=== PATIENT | female | born 1955 | race Caucasian/White ===

== ENCOUNTER 2016-08-28 13:37 | Inpatient (IN) ==
--- NOTE | 2016-08-28 13:52 | Anesthesia Evaluation PreOp ---
Date of Encounter: 08/28/16 Time of Encounter: 13:50 - Past History Planned Operation: Right Total Shoulder Cardiac History: HTN, Arrhythmia (Afib) Pulmonary History: Denies Any Significant HX PATIENT INTAKE COORDINATOR History: Denies Any Significant HX Other Medical History: Thyroid (Hypothyroid), GERD (PUD) Anesthesia History: No Prior Anesthetic Complications, Past Anesthesia (c/s, GB , Gastric Bypass) : No Alcohol Use: none Drug use: none Medications and Allergies Cyclobenzaprine [Flexeril] 10 mg PO BID 08/28/16 [History] Ibuprofen [Ibuprofen] 800 mg PO TID PRN 08/28/16 [History] LORazepam [Ativan] 1 mg PO HS PRN 08/28/16 [History] Levothyroxine [Synthroid] 100 mcg PO 0630 08/28/16 [History] Omeprazole [PriLOSEC] 20 mg PO DAILY 08/28/16 [History] Oxycodone HCl/Acetaminophen [Percocet 7.5-325 mg Tablet] 1 each PO Q6H PRN 08/28 [History] Sotalol [Betapace] 80 mg PO Q12H 08/28/16 [History] Zolpidem [Ambien] 10 mg PO HS 08/28/16 [History] Allergies latex Allergy (Verified 08/28/16 14:01) Itching testing drawn on 08/26/16 RESULTS PENDING 08/28/16 Penicillins Adverse Reaction (Verified 08/28/16 14:01) Redness of Skin - Meds/Allergy Pre-op Review Medications Reviewed: Yes Allergies Reviewed: Yes Beta Blockers on Current Med List: Yes ( ) If Beta Blockers taken, Date/Time (Last Dose taken): 08/28/2016 10:00 Anesthesia Results - Labs Laboratory Tests 08/26/16 08/26/16 08/26/16 14:45 14:45 14:45 WBC 10.7 Hgb 13.1 Hct 39.9 Plt Count 460 H INR 1.1 Sodium 137 Potassium 4.5 Chloride 104 Carbon Dioxide 25 BUN 24 H Creatinine 0.83 - Imaging EKG: image reviewed (Poss. Rabia SHARP Ant. [place]) Anesthesia Exam Height: 5'7'' Weight: 191# NPO (# of Hours): > 8 hrs Pain Scale: 0 Pain Scale Used: Numeric (1 - 10) - HEENT Pupil (Motor): Pupils equal, EOMI Mallampati: II Teeth: Edentulous Denture Type: Upper: Complete, Lower: Complete Oral Opening: Greater than 3 - PATIENT INTAKE COORDINATOR LOC: Oriented PATIENT INTAKE COORDINATOR Motor: Normal RUE, Normal LUE, Normal RLE, Normal LLE, Normal Face PATIENT INTAKE COORDINATOR Sensory: Normal: RUE, LUE, RLE, LLE, Face - Cardiac Rhythm: Regular Murmur: None JVD: No Carotid Bruit: No - Pulmonary Breath Sounds: bilateral Clear Respiratory Effort: Symmetrical Anesthesia Assess/Plan ASA Score: 3 Modified Edi Scale for Level of Consciousness: Cooperative, oriented, and tranquil Anesthetic Plan: General, Regional (Right Brachial Plexus Block) Autologous Blood: Yes Monitoring Plan: Standard Monitors Recovery Plan: PACU
[2016-08-28] MEDS ORDERED: Clindamycin 900 MG/50 ML 900 MG/50 ML IV.SOLN IVPB ONE (14:18)
--- NOTE | 2016-08-28 14:22 | History & Physical Report ---
Date of Encounter: 08/28/16 Time of Encounter: 14:22 24 Hour HP Update - Instructions Instructions: If the History and Physical is less than 30 days old and was completed prior to A.M. admission and or procedure and has NOT been updated on calendar day of procedure please complete this update prior to performing procedure. - Update Patient reports changes in Medical Condition: No Changes in examination, assessment, or condition: No Changes in Medication: No Preop tests/diagnostics Reviewed: Yes Surgery Remains Indicated: Yes Consent for Planned Operative Procedure(s) Verified: Yes - Pre-Operative Checklist Preoperative Checklist Indicated: No Prophylactic Antibiotic Ordered: Yes Is VTE Prophylaxis Indicated?: Yes
--- NOTE | 2016-08-28 14:24 | Discharge Summary ---
Date of Encounter: 08/29/16 Time of Encounter: 06:41 - Discharge Diagnosis (1) Hypertension Priority: Secondary Status: Chronic Qualifiers: Hypertension type: unspecified Qualified Code(s): I10 - Essential (primary ) hypertension (2) Atrial fibrillation Priority: Secondary Status: Chronic Qualifiers: Atrial fibrillation type: unspecified Qualified Code(s): I48.91 - Unspecified atrial fibrillation (3) Hypothyroidism Priority: Secondary Status: Chronic Qualifiers: Hypothyroidism type: unspecified Qualified Code(s): E03.9 - Hypothyroidism , unspecified (4) Fracture of right shoulder Priority: Primary Status: Acute Qualifiers: Encounter type: initial encounter Fracture type: closed Qualified Code(s) : S42.91XA - Fracture of right shoulder girdle, part unspecified, initial encounter for closed fracture - Discharge Medications Home Medications: Cyclobenzaprine [Flexeril] 10 mg PO BID 08/28/16 [History] Ibuprofen 800 mg PO TID PRN 08/28/16 [History] LORazepam [Ativan] 1 mg PO HS PRN 08/28/16 [History] Levothyroxine [Synthroid] 100 mcg PO 0630 08/28/16 [History] Omeprazole [PriLOSEC] 20 mg PO DAILY 08/28/16 [History] Oxycodone HCl/Acetaminophen [Percocet 7.5-325 mg Tablet] 1 each PO Q6H PRN 08/28 [History] Sotalol [Betapace] 80 mg PO Q12H 08/28/16 [History] Zolpidem [Ambien] 10 mg PO HS 08/28/16 [History] Allergies/Adverse Reactions: Allergies latex Allergy (Verified 08/28/16 14:01) Itching testing drawn on 08/26/16 RESULTS PENDING 08/28/16 Penicillins Adverse Reaction (Verified 08/28/16 14:01) Redness of Skin Primary care physician: Ashwini Lobato - Patient Status Disposition: Home, Self-Care Condition: Good Functional capacity at discharge: uses cane/walker Overall status at discharge: patient is progressing back to baseline - Discharge Instructions Follow Up With: Ashwini Kumar MD [Primary Care Provider] - - Hospital Course Hospital course: Ms. Pressley is a 60 year old female Status post right total shoulder replacement for fracture. The patient had an uneventful postoperative course. They received antibiotics and physical therapy and were discharged in stable condition. There will follow -up in the office in 2 weeks. - Time Spent with Patient Total time spent providing and/or coordinating discharge services:
[2016-08-28] MEDS ORDERED: Ringers Solution, Lactated 1,000 ML IVC SCH ×3 (14:30→17:55)
[2016-08-28] MEDS ORDERED: *HR* Succinylcholine 200 MG/10 ML VIAL IVP ONE (14:47)
[2016-08-28] MEDS ORDERED: Dexamethasone 4 MG/ML VIAL ONE (14:47)
[2016-08-28] MEDS ORDERED: *HR* FentaNYL (PF) 100 MCG/2 ML VIAL ONE (14:47)
[2016-08-28] MEDS ORDERED: Ondansetron 4 MG/2 ML VIAL ONE (14:47)
[2016-08-28] MEDS ORDERED: Lidocaine -MPF 2% 2 ML VIAL ONE (14:47)
[2016-08-28] MEDS ORDERED: *HR* Midazolam HCl 2 MG/2 ML VIAL ONE (14:48)
[2016-08-28] MEDS ORDERED: *HR* Propofol 200 MG/20 ML VIAL IVP ONE (14:48)
[2016-08-28] MEDS ORDERED: Lidocaine -MPF 4% 5 ML AMPUL ONE (14:58)
[2016-08-28] MEDS ORDERED: Bupivacaine/Clonidine Syringe 1 EACH SYRINGE ONE (15:05)
[2016-08-28] MEDS ORDERED: ROPIVACAINE HCL/PF 0.5% 30 ML VIAL ONE (15:05)
--- NOTE | 2016-08-28 15:26 | Anesthesia Procedures ---
Date of Encounter: 08/28/16 Time of Encounter: 15:15 Procedures: Anesthesia - Nerve Block Procedure Date: 08/28/16 Time: 15:15 Allergies/Adv Reactions: Latex, PCN Pre-op Diagnosis: Right shoulder rotator cuff arthropathy Surgical Procedure: Right total shoulder replacement Checklist: Correct Patient Identifier, Correct procedure, History checked Correct side: Right Blood Thinner: No Monitor Applied: EKG, BP, Pulse Oximetry Supplemental Oxygen via Nasal Cannula (L/min): 2 Sedation: Versed (mg): 2 Sedation: Fentanyl (mcg): 100 Indication: Post Op Analgesia Pre-op Neuro Deficits: Yes Block Type: Supraclavicular Catheter placed: No Sterile Technique: Yes Ultrasound used: Yes Anatomy identified: Yes Visual spread of Local: Yes Neuro Stimulation: No Blood on Needle Aspiration: No Smooth Injection of Local: Yes Pain with Injection of Local: No Prep: Chlorhexadine Needle: 22 x 50 mm Stimuplex Local: 0.25% Bupivicaine w/Clonidine 20 mcg/cc, Ropivacaine Volume (cc): Ropivicaine 30ml, [id number] Number of Attempts: 1 Complications: None/effective block Vitals: Vital Signs Temperature 97.8 F 08/28/16 14:07 Pulse Rate 69 08/28/16 14:07 Respiratory Rate 18 08/28/16 14:07 Blood Pressure 116/66 08/28/16 14:07 O2 Sat by Pulse Oximetry 98 08/28/16 14:07 Temperature 97.8 F 08/28/16 14:07 Pulse Rate 56 08/28/16 15:03 Respiratory Rate 16 08/28/16 15:03 Blood Pressure 121/109 08/28/16 15:03 O2 Sat by Pulse Oximetry 99 08/28/16 15:03
[2016-08-28] MEDS ORDERED: *HR* HYDROmorphone (PF) 1 MG/ML SYRINGE IVP PRN ×2 (15:27→17:55)
[2016-08-28] MEDS ORDERED: Ondansetron 4 MG/2 ML VIAL IVP ONE (15:27)
[2016-08-28] MEDS ORDERED: *HR* Labetalol 20 MG/4 ML SYRINGE IVP PRN (15:27)
[2016-08-28] MEDS ORDERED: *HR* Promethazine 25 MG/ML VIAL IVP PRN (15:27)
[2016-08-28] MEDS ORDERED: EPHEDrine 50 MG/ML VIAL ONE (15:58)
[2016-08-28] MEDS ORDERED: *HR* Phenylephrine 10 MG/ML VIAL ONE (16:02)
--- NOTE | 2016-08-28 16:50 | Orthopedic Operative Note ---
Date of procedure: 08/28/16 Pre-op diagnosis: disPlaced right proximal humerus fracture Post-op diagnosis: same Procedure: Procedure: Right Reverse total shoulder replacment Estimated blood loss: 100 cc Hardware: Metal and polyethylene replacement Arthrex glenoid baseplate: Medium , 2 4.5 screws. 1 6.5 screw, glenosphere: 42+4 , humeral stem: 9 , poly insert: 6 constrained Procedural Notes: Displaced proximal humerus fracture with comminution Operative procedure: The patient was brought to the operating room and placed on the operating room table. After general anesthesia was administered the operative shoulder was examined. Findings were noted. The patient was placed in the modified beachchair position. All pressure points were padded appropriately. And the head was stabilized in the neutral position. The operative extremity was prepped and draped in the sterile surgical fashion. The patient received IV antibiotics prior to skin incision. A standard deltopectoral approach was made to the operative shoulder. Incision was made to the skin and subcutaneous tissue,hemo stasis was obtained with Bovie cautery. Using careful blunt dissection the cephalic vein was identified and mobilized medially. The deltopectoral interval was developed and the clavipectoral fascia was incised. The lesser tuberosity was identified and tagged with 2 #2 fiber loops and 2 #2 FiberWire suture. The greater tuberosity was identified and tagged with 6 #5 FiberWire suture. The humeral head was removed. Anterior and posterior Bankart retractors were placed to expose the glenoid. The glenoid guide was seated and the centering hole was made. It was reamed with the appropriate reamer. The medium baseplate was seated and secured with ( 2) 4.5 screws and one 6.5 screw. The baseplate was irrigated and dried and the 42+4 was seated and secured with the Hutchinson taper. The Hutchinson taper was tested and found to be secure the humerus was redislocated and prepared with the diaphyseal reamers, followed by a broaching process up to the appropriate size 9 in 20 degrees of retro-version. Trial reduction found the shoulder to be relocatable. Trial components were removed and [address] on either side of the bicpital groove and filled with #5 fiberwire incorporating the biceps, for a later biceps tenodesis and vertical fixation of the tuberosities. The 9 real humeral component was impaced in place in 20 degrees of retroversion. Trial reduction found the shoulder to be relocatable and stable with the appropriate 6 constrained. Trial component was removed and the real implant was seated and secured the shoulder was reduced. The shoulder had excellent motion and excellent stability and no evidence of dislocation. The greater tuberosity was reduced and repaired to the implant with 2 # 5 fiberwire sutures. the lesser tuberosity was reduced and repaired to this construct with 2 #5 fiberwire sutures. Vertical fixation of the tuberosities was accomplished with the #5 fiberwire sutures in the humeral shaft, incoporating the bices in a box stitch type repair. The deep tissue was irrigated with pulse irrigation. The deltopectoral interval was closed with a running #1 PDS suture, subcutaneous tissue was irrigated and closed with 0 PDS suture, the skin was closed with skin viktoriya The patient was placed in a sterile dressing, abduction brace and extubated. The patient was then transferred to the recovery room in stable condition. Anesthesia: LUL Surgeon: Nadeem Gu Condition: stable Disposition: PACU
--- NOTE | 2016-08-28 17:31 | Anesthesia Evaluation Post Op ---
Date of Encounter: 08/28/16 Time of Encounter: 17:30 - Vital Signs Vital Signs: vss - Lungs Lungs: Clear Ascult./Percussion - Airway Airway: Non-obstructed - Cardiovascular Baseline Rhythm - Mental Status Mental Status: Alert & Oriented, Answers Appropriately - Pain Pain Scale: 0 Pain Scale used: Hollie (Faces) - Nausea Vomiting Nausea Vomiting: Not Present - Hydration Hydration: Ice chips - Discharge PostOp Status: Transfer Patient to floor
[2016-08-28 17:37] LABS: Hematocrit 35.5 % (35.3-44.9); Hemoglobin 11.7 g/dL (11.5-15.4)
[2016-08-28] MEDS ORDERED: Naloxone 0.4 MG/ML INJ IVP PRN (17:55)
[2016-08-28] MEDS ORDERED: Ibuprofen 800 MG TABLET PO PRN (17:55)
[2016-08-28] MEDS ORDERED: MOM Conc 10 ML UD.LIQ PO PRN (17:55)
[2016-08-28] MEDS ORDERED: *HR* LORazepam 1 MG TABLET PO PRN (17:55)
[2016-08-28] MEDS ORDERED: Sennosides 8.6 MG TABLET PO PRN (17:55)
[2016-08-28] MEDS ORDERED: *HR* OxyCODONE Immed Rel 5 MG TABLET PO PRN ×2 (17:55)
[2016-08-28] MEDS ORDERED: Ondansetron 4 MG/2 ML VIAL IVP PRN (17:55)
[2016-08-28] MEDS ORDERED: Temazepam 15 MG CAPSULE PO PRN (17:55)
[2016-08-28] MEDS ORDERED: *HR* Enoxaparin 30 MG/0.3 ML SYRINGE SQ SCH (18:00)
[2016-08-28] MEDS: *HR* Enoxaparin 30 MG/0.3 ML SYRINGE SQ SCH (18:39)
[2016-08-28] MEDS: Clindamycin 900 MG/50 ML 900 MG/50 ML IV.SOLN IVPB SCH (18:39)
[2016-08-29] MEDS: Clindamycin 900 MG/50 ML 900 MG/50 ML IV.SOLN IVPB SCH (01:02)
[2016-08-29 01:15] LABS: Hemoglobin 13.1 g/dL (11.5-15.4)
[2016-08-29] MEDS: *HR* Enoxaparin 30 MG/0.3 ML SYRINGE SQ SCH (06:37)
--- NOTE | 2016-08-29 06:42 | Orthopedics Progress Note ---
Date of Encounter: 08/29/16 Time of Encounter: 06:42 - Assessment and Plan (1) Hypertension Current Visit: Yes Status: Chronic Qualifiers: Hypertension type: unspecified Qualified Code(s): I10 - Essential (primary ) hypertension (2) Atrial fibrillation Current Visit: Yes Status: Chronic Qualifiers: Atrial fibrillation type: unspecified Qualified Code(s): I48.91 - Unspecified atrial fibrillation (3) Hypothyroidism Current Visit: Yes Status: Chronic Qualifiers: Hypothyroidism type: unspecified Qualified Code(s): E03.9 - Hypothyroidism , unspecified (4) Fracture of right shoulder Current Visit: No Status: Acute Qualifiers: Encounter type: initial encounter Fracture type: closed Qualified Code(s) : S42.91XA - Fracture of right shoulder girdle, part unspecified, initial encounter for closed fracture Subjective Interval history: Patient was seen this morning doing well without complaints. Afebrile vital signs stable. Operative extremity: Neurovascularly intact Dressing clean dry and intact Calves nontender Assessment and plan: Continue with postoperative care Hematocrit 42 discharged today Objective Vital signs: Vital Signs Temp Pulse Resp BP Pulse Ox 08/28/16 21:00 94.6 F L 56 16 123/64 95 08/28/16 20:28 95 08/28/16 20:00 97.6 F 56 16 120/77 94 08/28/16 18:44 98.0 F 53 18 104/66 96 08/28/16 18:32 97.4 F L 55 16 118/53 97 08/28/16 17:56 97.5 F L 53 18 118/75 100 08/28/16 17:35 97.4 F L 52 12 113/63 100 08/28/16 17:25 97.4 F L 56 12 123/71 100 08/28/16 17:15 54 12 104/63 100 08/28/16 17:05 58 12 100/66 100 08/28/16 16:55 97.5 F L 60 12 100/65 100 08/28/16 15:03 56 16 121/109 99 08/28/16 14:07 97.8 F 69 18 116/66 98 Intake and Output 08/28/16 08/28/16 08/29/16 15:59 23:59 07:59 Intake Total 0 / 0 100 / 100 50 / 50 Output Total 500 / 500 Balance 0 / 0 -400 / -400 50 / 50 Intake: IV Fluids 0 / 0 100 / 100 50 / 50 Lactated Ringers 1,000 ML 0 / 0 @ 25 mls/hr IVC .Q24H ER[facility] Rx#:[id number] Cleocin Premix 900 MG/50 100 / 100 50 / 50 ML 900 mg In 50 ml @ 50 mls/hr IVPB Q8HR ERIS Rx#: [id number] Oral 0 / 0 Output: Urine 400 / 400 Estimated Blood Loss 100 / 100 Other: Stool Size Smear # Voids 1 1 Weight 86.636 kg Blood Glucose* 86 - Labs CBC & BMP: 08/29/16 01:06 - VTE Documentation of Mechanical Device: Venous foot pump, device Consult Discharge Plan - Plan Referrals: Ashwini Kumar MD [Primary Care Provider] -
[2016-08-29 10:50] VITALS: BP 121/84
--- NOTE | 2016-08-29 12:30 | Event Note ---
Date of Encounter: 08/29/16 Time of Encounter: 12:24 At bedside with patient. Patient complains of pain in R shoulder- requesting pain medication for home, patient made aware that we will be getting a prescription filled here at our pharmacy for her to take home. Patient made aware to call our office if the pain medication is not controlling our pain. Patient able to move R hand without difficulty.
== END 2016-08-29 15:47 | disposition home or self-care (01) | DRG 483 ==
LOC: SAMDAY 13:37 → 3NENU 17:35
PROVIDERS: ADMIT Orthopaedic Surgery; ATTEND Orthopaedic Surgery

== ENCOUNTER 2017-10-13 08:51 | Inpatient (IN) ==
[2017-10-13] MEDS ORDERED: *HR* FentaNYL (PF) 100 MCG/2 ML VIAL IM ONE (09:10)
[2017-10-13] MEDS ORDERED: Ondansetron ODT 4 MG TAB.RAPDIS SL ONE (09:10)
--- NOTE | 2017-10-13 09:21 | Emergency Department Note ---
Disposition Clinical Impression: Closed fracture of right femur Qualifiers: Encounter type: initial encounter Femur location: intertrochanteric Fracture alignment: displaced Qualified Code(s): S72.141A - Displaced intertrochanteric fracture of right femur, initial encounter for closed fracture Disposition: Admitted As Inpatient Condition: Fair Fall HPI - General Chief Complaint: ED Fall Stated Complaint: Knee pain Time Seen by Provider: 10/13/17 08:52 Source: patient, EMS Mode of arrival: EMS Limitations: no limitations Nursing Notes Reviewed: Yes Vital Signs Reviewed: Yes - History of Present Illness Pt Subjective Complaint: fall Onset (ago): hour(s) (around 4AM) Fall From: standing Fall Witnessed: no Place Fall Occurred: home Loss of Consciousness: none Prolonged Down Time?: no Symptoms Prior to Fall: none Context: tripped/slipped (on water) Location of injury: hip Location of injury - extremities: Right: hip, knee Severity: moderate, severe Quality: sharp, stabbing, aching Associated symptoms (after fall): Reports: unable to walk. Denies: headache, neck pain, numbness, weakness, chest pain, shortness of breath, abdominal pain, hematuria, lightheaded, vertigo, confusion - Related Data Home Medications Medication Instructions Recorded Confirmed Cyclobenzaprine [Flexeril] 10 mg PO TID 08/28/16 07/13/17 Levothyroxine [Synthroid] 100 mcg PO 0630 08/28/16 07/13/17 Omeprazole [PriLOSEC] 20 mg PO BID 08/28/16 07/13/17 Sotalol [Betapace] 80 mg PO Q12H 08/28/16 07/13/17 Zolpidem [Ambien] 10 mg PO HS 08/28/16 07/13/17 Baclofen [Lioresal] 10 mg PO TID 07/13/17 07/13/17 Nabumetone 750 mg PO BID 07/13/17 07/13/17 Oxycodone HCl/Acetaminophen 1 each PO DAILY 07/14/17 07/14/17 [Percocet 7.5-325 mg Tablet] Allergies Allergy/AdvReac Type Severity Reaction Status Date / Time latex Allergy Itching Verified 07/14/17 00:13 Penicillins AdvReac Redness of Verified 07/14/17 00:13 Skin All systems ED: reviewed and negative except as stated. Review of Systems: As Per HPI Constitutional: Denies: fever, chills, weakness Gastrointestinal: Denies: abdominal pain, nausea, vomiting Musculoskeletal: Reports: as per HPI, arthralgia. Denies: back pain, neck pain Neurological: Denies: headache, weakness, numbness, paresthesias, confusion, vertigo Hematological/Lymphatic: Denies: easy bleeding, easy bruising Fall PMH - Past Medical History Medical history: Reports: atrial fibrillation, GERD, migraine, thyroid disease, other Psychiatric history: Reports: no psych history - Social History Smoking Status: Never smoker Alcohol use: Reports: none Drug use: Reports: none Physical Exam - General Limitations: no limitations General appearance: alert, in no apparent distress - Head Head exam: atraumatic, normocephalic, normal inspection - Eye Eye exam: Present: normal appearance, PERRL. Absent: scleral icterus, conjunctival injection, periorbital swelling - ENT ENT exam: mucous membranes moist - Neck Neck exam: Present: normal inspection, full ROM, trachea midline. Absent: tenderness - Expanded Neck Exam Neck exam focused ED: Absent: paraspinal tenderness, tenderness (other), anterior neck swelling - Chest Chest inspection: Present: normal inspection - Respiratory Respiratory exam: Present: normal lung sounds bilaterally. Absent: respiratory distress - Cardiovascular Cardiovascular exam: Present: regular rate, normal rhythm, normal heart sounds Course Course Narrative: Patient with history of atrial fibrillation, not anticoagulated presents from home by squad for evaluation of right knee and hip pain. She states that she slipped on some water in the kitchen around 4 AM and fell. She had immediate pain in her hip. She denies head neck or back pain or injury. She denies dizziness, vertigo, syncope, chest pain or shortness of breath, nausea, vomiting , recent illness, frequent falls, or unsteady gait. She is unable to get up, so she called a family member who helped her to a chair. She was still unable to bear any weight, even with assistance, so EMS was called. Upon arrival, the right hip is externally rotated. She has tenderness to palpation over the greater trochanteric area. She has no bony tenderness palpation of the knee, but does have pain in the knee with extension. All directions of movement are painful in the right hip. Peripheral pulses are 2+ and symmetric. She has decreased sensation to light touch in the feet bilaterally second peripheral neuropathy. She reports this is unchanged compared to previous. No spine tenderness, normal neuro exam. Xray shows right hip fx. Severe DJD of knee. Official read is pending. Ortho paged. Patient has a hip fx - unable to bear weight - will require admission and ORIF. Hospitalist paged. Labs, CXR and EKG ordered. - Consultations Consultation #1: Ortho paged Time: 09:41 Vital Signs Temperature 97.8 F 10/13/17 08:57 Pulse Rate 73 10/13/17 08:57 Respiratory Rate 16 10/13/17 08:57 Blood Pressure 119/86 10/13/17 08:57 O2 Sat by Pulse Oximetry 95 10/13/17 08:57 Temperature 97.8 F 10/13/17 08:57 Pulse Rate 73 10/13/17 08:57 Respiratory Rate 16 10/13/17 08:57 Blood Pressure 119/86 10/13/17 08:57 O2 Sat by Pulse Oximetry 95 10/13/17 08:57 Oxygen Delivery Oxygen Delivery Room Air Fall - Medical Records Medical records reviewed: Yes I reviewed the patient's medical records. - Radiology Data Radiology results reviewed: Yes I reviewed the patient's radiology results. Knee X-Ray 10/13/17 09:10 IMPRESSION: No definite evidence of an acute fracture or significant joint effusion. Tricompartmental degenerative changes most prominent in medial compartment with irregularity of the medial tibial plateau. This may represent sequela of remote injury. D/ / Orion López MD / Orion López MD Interpreting Provider: Orion López MD - EKG Data EKG attestation: Yes I reviewed and interpreted this EKG. EKG shows normal: sinus rhythm Rate: normal Rhythm: NSR [place]/QRS: normal When compared to previous EKG there are: no significant changes Interpretation: unchanged when compared to prior tracing (date)
[2017-10-13] MEDS ORDERED: 0.9 % Sodium Chloride 1,000 ML IVC ONE (09:40)
[2017-10-13] MEDS ORDERED: Naloxone 0.4 MG/ML INJ IVP PRN (10:06)
--- NOTE | 2017-10-13 10:10 | Emergency Department Note ---
Disposition Clinical Impression: Closed fracture of right femur Qualifiers: Encounter type: initial encounter Femur location: intertrochanteric Fracture alignment: displaced Qualified Code(s): S72.141A - Displaced intertrochanteric fracture of right femur, initial encounter for closed fracture Disposition: Admitted As Inpatient Condition: Fair General Adult HPI - General Chief complaint: ED Fall Stated complaint: Knee pain Time Seen by Provider: 10/13/17 08:52 Source: patient, EMS Mode of arrival: EMS Limitations: no limitations - History of Present Illness Pain Scale: 3 - Related Data Home Medications Medication Instructions Recorded Confirmed Levothyroxine [Synthroid] 100 mcg PO 0630 08/28/16 10/13/17 Omeprazole [PriLOSEC] 20 mg PO BID 08/28/16 10/13/17 Sotalol [Betapace] 80 mg PO Q12H 08/28/16 10/13/17 Zolpidem [Ambien] 10 mg PO HS 08/28/16 10/13/17 Baclofen [Lioresal] 10 mg PO TID 07/13/17 10/13/17 Nabumetone 750 mg PO BID 07/13/17 10/13/17 Oxycodone HCl/Acetaminophen 1 - 2 tab PO DAILY PRN 07/14/17 10/13/17 [Percocet 7.5-325 mg Tablet] Allergies Allergy/AdvReac Type Severity Reaction Status Date / Time latex Allergy Itching Verified 07/14/17 00:13 Penicillins AdvReac Redness of Verified 07/14/17 00:13 Skin Constitutional: Denies: fever, chills, weakness Gastrointestinal: Denies: abdominal pain, nausea, vomiting Musculoskeletal: Reports: as per HPI, arthralgia. Denies: back pain, neck pain Neurological: Denies: headache, weakness, numbness, paresthesias, confusion, vertigo Hematological/Lymphatic: Denies: easy bleeding, easy bruising Past Medical History - Past Medical History Medical history: Reports: atrial fibrillation, GERD, migraine, thyroid disease, other Psychiatric history: Reports: no psych history - Social History Smoking Status: Never smoker Smokeless Tobacco Status: No Alcohol use: Reports: none Drug use: Reports: none Physical Exam - General Limitations: no limitations General appearance: alert, in no apparent distress Course Vital Signs Temperature 97.8 F 10/13/17 08:57 Pulse Rate 73 10/13/17 08:57 Respiratory Rate 16 10/13/17 08:57 Blood Pressure 119/86 10/13/17 08:57 O2 Sat by Pulse Oximetry 95 10/13/17 08:57 Temperature 97.9 F 10/13/17 15:34 Pulse Rate 68 10/13/17 15:34 Respiratory Rate 16 10/13/17 15:34 Blood Pressure 148/79 10/13/17 15:34 O2 Sat by Pulse Oximetry 96 10/13/17 15:34 Oxygen Delivery Oxygen Delivery Nasal Cannula Medical Decision Making - Lab Data Result diagrams: 10/13/17 09:39 10/13/17 09:39 Lab Results 10/13/17 10/13/17 10/13/17 Range/Units 09:39 09:39 09:39 WBC 13.6 H (4.3-11.1) K/mcL RBC 4.63 (3.82-4.97) M/mcL Hgb 13.4 (11.5-15.4) g/dL Hct 41.3 (35.3-44.9) % MCV 89.2 (83.0-100.0) fL MCH 28.9 (28.0-33.3) pg MCHC 32.4 (31.6-35.5) g/dL RDW 15.1 H (11.5-14.5) % Plt Count 206 (140-400) K/mcL MPV 10.4 (9.4-12.4) fL Immature Gran % 0.5 (0-4) % Seg Neutrophils % 81.7 % Lymphocytes % 10.9 % Monocytes % 6.0 % Eosinophils % 0.6 % Basophils % 0.3 % Neutrophils # 11.1 H (1.6-8.9) K/mcL Lymphocytes # 1.5 (0.6-4.6) K/mcL Monocytes # 0.8 (0.0-1.3) K/mcL Eosinophils # 0.1 (0.0-0.6) K/mcL Basophils # 0.0 (0.0-0.2) K/mcL PT 12.0 (9.4-12.1) Seconds INR 1.1 APTT 29.4 (26.0-36.0) Seconds Sodium 136 (136-145) mEq/L Potassium 4.4 (3.5-5.1) mEq/L Chloride 103 (98-107) mEq/L Carbon Dioxide 27 (23-29) mEq/L BUN 18 (8-23) mg/dL Creatinine 0.81 (0.60-1.20) mg/dL Est GFR ( Amer) > 60 (> 60) Est GFR (Non-Af Amer) > 60 (> 60) BUN/Creatinine Ratio 22 (6-26) Glucose 138 H (70-105) mg/dL Calculated Osmolality 286 (280-300) Calcium 8.7 (8.6-10.3) mg/dL Troponin I < 0.03 (< 0.04) ng/mL Urine Color (Yellow) Urine Clarity (Clear) Urine pH (5.0-8.0) pH Units Ur Specific [place] (1.010-1.025) Urine Protein (Neg-Trace) mg/dL Urine Glucose (UA) (Normal) mg/dL Urine Ketones (Negative) mg/dL Urine Blood (Negative) Urine Nitrite (Negative) Urine Bilirubin (Negative) Urine Urobilinogen (Normal) mg/dL Ur Leukocyte Esterase (Negative) Ur Culture Indicated? (NO) 10/13/17 Range/Units 10:22 WBC (4.3-11.1) K/mcL RBC (3.82-4.97) M/mcL Hgb (11.5-15.4) g/dL Hct (35.3-44.9) % MCV (83.0-100.0) fL MCH (28.0-33.3) pg MCHC (31.6-35.5) g/dL RDW (11.5-14.5) % Plt Count (140-400) K/mcL MPV (9.4-12.4) fL Immature Gran % (0-4) % Seg Neutrophils % % Lymphocytes % % Monocytes % % Eosinophils % % Basophils % % Neutrophils # (1.6-8.9) K/mcL Lymphocytes # (0.6-4.6) K/mcL Monocytes # (0.0-1.3) K/mcL Eosinophils # (0.0-0.6) K/mcL Basophils # (0.0-0.2) K/mcL PT (9.4-12.1) Seconds INR APTT (26.0-36.0) Seconds Sodium (136-145) mEq/L Potassium (3.5-5.1) mEq/L Chloride (98-107) mEq/L Carbon Dioxide (23-29) mEq/L BUN (8-23) mg/dL Creatinine (0.60-1.20) mg/dL Est GFR ( Amer) (> 60) Est GFR (Non-Af Amer) (> 60) BUN/Creatinine Ratio (6-26) Glucose (70-105) mg/dL Calculated Osmolality (280-300) Calcium (8.6-10.3) mg/dL Troponin I (< 0.04) ng/mL Urine Color Yellow (Yellow) Urine Clarity Clear (Clear) Urine pH 6.5 (5.0-8.0) pH Units Ur Specific [place] 1.007 L (1.010-1.025) Urine Protein Negative (Neg-Trace) mg/dL Urine Glucose (UA) Normal (Normal) mg/dL Urine Ketones Negative (Negative) mg/dL Urine Blood Negative (Negative) Urine Nitrite Negative (Negative) Urine Bilirubin Negative (Negative) Urine Urobilinogen Normal (Normal) mg/dL Ur Leukocyte Esterase Negative (Negative) Ur Culture Indicated? NO (NO) - Radiology Data Radiology results reviewed: Yes I reviewed the patient's radiology results. - EKG Data EKG #1 EKG attestation: Yes I reviewed and interpreted this EKG. EKG results narrative: EKG shows sinus rhythm with heart rate of 68. [place] interval 176. QRS 99. QTC 422. Patient has no significant ST elevations or depressions. Attestation Statement - Attestation Attestation: Patient seen in conjunction with BETTE Miller. Patient was seen and evaluated for right knee and hip pain. Patient slipped on water at home. Patient denies head injury or loss of consciousness. No cervical spine tenderness. Neck Range of motion without pain. Palpation of the thoracic and lumbar spine reveal no tenderness. Patient has mild tenderness to the right knee which she states has been bad for "quite some time ". Patient's right hip with tenderness to palpation. I have viewed the hip x- ray and it does appear to be fractured. Official radiology reads are pending. Screening blood work, EKG, chest x-ray will be obtained to facilitate clearance for likely surgery. A call will be placed to orthopedics. Patient to be admitted to the hospitalist. Please see BETTE no for further details and disposition.
--- NOTE | 2017-10-13 10:29 | Internal Med History&Physical ---
Date of Encounter: 10/13/17 Time of Encounter: 10:25 Internal Medicine - H&P: HPI History of present illness: Ms. Pressley is a 62 year old female with history of atrial fibrillation, hypothyroidism post thyroidectomy, migraines, presented after a fall. Patient states she was making toast and did not see that there was water on the floor. She fell backwards and landed on her hip. She denies any head contusion, dizziness, chest pain, palpitations, diaphoresis, headaches, blurry vision prior to fall. She is on sotalol for afib but not on anticoagulation. She has neuropathy of unknown cause but she states it is mild. In the ED, an x-ray of the right hip showed mildly displaced intertrochanteric fracture of proximal right femure. Patient is hemodynamically stable. She rates pain 4/10 at rest and 10/10 when legs are moved. CBC/BMP/INR are pending. Past Med Surg Social Fam HX - Past Medical History Medical history: atrial fibrillation, GERD, migraine, thyroid disease, other Psychiatric history: no psych history - Past Surgical History Additional surgical history: Lap Band - Social History Smoking Status: Never smoker Smokeless Tobacco Status: No Alcohol use: none Drug use: none - Family History Mother Living Status: Hx Family Endocrine Disorder: Yes (DM) Internal Medicine - H&P: Meds Levothyroxine [Synthroid] 100 mcg PO 0630 08/28/16 [History] Omeprazole [PriLOSEC] 20 mg PO BID 08/28/16 [History] Sotalol [Betapace] 80 mg PO Q12H 08/28/16 [History] Zolpidem [Ambien] 10 mg PO HS 08/28/16 [History] Baclofen [Lioresal] 10 mg PO TID 07/13/17 [History] Nabumetone 750 mg PO BID 07/13/17 [History] Oxycodone HCl/Acetaminophen [Percocet 7.5-325 mg Tablet] 1 - 2 tab PO DAILY PRN 07/14/17 [History] 3 Allergy/AdvReac Type Severity Reaction Status Date / Time latex Allergy Itching Verified 07/14/17 00:13 Penicillins AdvReac Redness of Verified 07/14/17 00:13 Skin All Systems PM: A 10-system review of systems was performed and is negative for pertinent findings except as documented above in the HPI. - Constitutional Constitutional: no chills, no fever(s), no night sweats - EENT Eyes: no change in vision, no discharge, no pain, no photophobia Nose, mouth and throat: no dysphagia, no nasal discharge, no neck pain, no sore throat - Cardiovascular Cardiovascular ROS IM: no chest pain, no diaphoresis, no dyspnea, no lightheadedness, no palpitations, no syncope - Gastrointestinal Gastrointestinal: no abdominal pain, no diarrhea, no hematemesis, no hematochezia, no melena, no nausea, no vomiting - Musculoskeletal Additional comments: Hip pain after fall. - Integumentary Integumentary IM: no rash, no unusual bruising - Neurological Neurological ROS: no confusion, no convulsions, no focal weakness, no numbness, no tingling, no tremor(s) Additional comments: No gait eval done, due to known hip fracture - Constitutional Vitals: Temp Pulse Resp BP Pulse Ox 97.8 F 69 20 119/86 95 10/13/17 08:57 10/13/17 10:00 10/13/17 10:00 10/13/17 10:00 10/13/17 10:00 General appearance: Present: A&O X 3, answers questions appropriately Exam: NAD - Head Head exam: Present: atraumatic, normocephalic - Eye Eye exam: Present: PERRL, conjuntiva pink, sclera anicteric Pupils: Present: PERRL - Neck Neck exam general surgery: Present: supple, trachea midline. Absent: lymphadenopathy - Respiratory Respiratory exam: Present: CTAB. Absent: accessory muscle use, rales, rhonchi, wheezes - Cardiovascular Cardiovascular exam: Present: RRR, +S1, +S2. Absent: diastolic murmur, gallop, rubs, systolic murmur - GI/Abdominal GI/Abdominal exam: Present: normal bowel sounds, soft, no peritoneal signs. Absent: distended, tenderness - Extremities Exam Extremities exam: Present: warm, radial pulses palpable and symmetrical. Absent : calf tenderness, cyanotic, pedal edema Additional comments: Neurovascular intact. Pulses tibial 2+ bilaterally. Sensation preserved. - Neurological Exam Neurological exam: Present: CN II-XII intact, oriented X3, no focal deficits. Absent: pronater drift, facial droop, speech deficit - Skin Skin exam: Present: dry, intact Internal Med - H&P Results - Impressions ITS Impressions Hip X-Ray 10/13/17 09:10 IMPRESSION: Mildly displaced intertrochanteric fracture of the proximal right femur. D/ / Vinayak Latif MD / Vinayak Latif MD Interpreting Provider: Vinayak Latif MD Knee X-Ray 10/13/17 09:10 IMPRESSION: No definite evidence of an acute fracture or significant joint effusion. Tricompartmental degenerative changes most prominent in the medial compartment with irregularity of the medial tibial plateau. This may represent sequela of remote injury. D/ / 10/13/2017 09:58:39 Orion López MD / shakir Interpreting Provider: Orion Lóepz MD Chest X-Ray 10/13/17 09:39 IMPRESSION: Small right pleural effusion with right basilar opacity likely representing atelectasis. D/ / Orion López MD / Orion López MD Interpreting Provider: Orion López MD - Assessment and plan (1) Intertrochanteric fracture of right femur Current Visit: Yes Status: Acute Assessment and plan: Orthopedic Surgery consulted. Will give pain RX prn. Qualifiers: Encounter type: initial encounter Fracture type: closed Fracture alignment: displaced Qualified Code(s): S72.141A - Displaced intertrochanteric fracture of right femur, initial encounter for closed fracture (2) Atrial fibrillation Current Visit: No Status: Chronic Assessment and plan: On sotalol. Not on home anticoagulation. Currently rate is controlled. INR pending. Qualifiers: Atrial fibrillation type: unspecified Qualified Code(s): I48.91 - Unspecified atrial fibrillation (3) Hypothyroidism Current Visit: No Status: Chronic Assessment and plan: Resume home medication. Qualifiers: Hypothyroidism type: unspecified Qualified Code(s): E03.9 - Hypothyroidism , unspecified (4) DVT prophylaxis Current Visit: Yes Status: Acute Assessment and plan: Heparin SQ - Time Spent With Patient Total time spent is greater than 50% in coordination of care (as documented) at patient's floor/unit and/or counseling patient:
[2017-10-13 10:35] LABS: Bilirubin,Urine Negative (Negative); Blood,Urine Negative (Negative); Clarity,Urine Clear (Clear); Color,Urine Yellow (Yellow); Glucose,Urine (UA) Normal (Normal); Ketones,Urine Negative (Negative); Leukocyte Esterase,Urine Negative (Negative); Nitrite,Urine Negative (Negative); PH,Urine 6.5 pH Units (5.0-8.0); Protein,Urine Negative (Neg-Trace); Specific Gravity,Urine 1.007 (1.010-1.025); Urobilinogen,Urine Normal (Normal)
[2017-10-13] MEDS ORDERED: Acetaminophen 325 MG TABLET PO PRN (10:42)
[2017-10-13 10:45] LABS: Hematocrit 41.3 % (35.3-44.9); Hemoglobin 13.4 g/dL (11.5-15.4); Immature Granulocytes % 0.5 % (0-4); Lymphocytes % 10.9 %; Mean Corpuscular HGB Conc 32.4 g/dL (31.6-35.5); Mean Corpuscular Hemoglobin 28.9 pg (28.0-33.3); Mean Corpuscular Volume 89.2 fL (83.0-100.0); Mean Platelet Volume 10.4 fL (9.4-12.4); Platelet Count 206 K/mcL (140-400); Red Blood Count 4.63 M/mcL (3.82-4.97); Red Cell Distribution Width 15.1 % (11.5-14.5); Segmented Neutrophils % 81.7 %
[2017-10-13 10:46] LABS: Basophils % 0.3 %; Eosinophils # 0.1 K/mcL (0.0-0.6); Eosinophils % 0.6 %; Lymphocytes # 1.5 K/mcL (0.6-4.6); Monocytes # 0.8 K/mcL (0.0-1.3); Neutrophils # 11.1 K/mcL (1.6-8.9)
[2017-10-13 10:52] LABS: INR 1.1
[2017-10-13 10:55] LABS: Activated Partial Thrombo Time 29.4 Seconds (26.0-36.0)
[2017-10-13 11:13] LABS: Blood Urea Nitrogen 18 mg/dL (8-23); Calcium 8.7 mg/dL (8.6-10.3); Carbon Dioxide 27 mEq/L (23-29); Chloride 103 mEq/L (98-107); Glucose 138 mg/dL (70-105); Osmolality,Calculated 286 (280-300); Potassium 4.4 mEq/L (3.5-5.1); Sodium 136 mEq/L (136-145); Troponin I < 0.03 ng/mL (< 0.04)
[2017-10-13 11:51] LABS: BUN/Creatinine Ratio 22 (6-26); eGFR For Non-African Americans > 60 (> 60)
[2017-10-13] MEDS: 0.9 % Sodium Chloride 1,000 ML IVC SCH (13:59)
[2017-10-13] MEDS: Baclofen 10 MG TABLET PO SCH ×2 (14:00→22:11)
[2017-10-13] MEDS: *HR* HYDROcodone/Acet 5/325 mg TABLET PO PRN ×2 (14:00→22:12)
[2017-10-13] MEDS: *HR* Heparin 5,000 UNIT/ML VIAL SQ SCH (16:20)
[2017-10-13] MEDS: OXYCODONE Oral CONC 10 MG/0.5 ML ORAL.SYG SL PRN (18:09)
--- NOTE | 2017-10-13 18:14 | Orthopedic Consult Note ---
Date of Encounter: 10/13/17 Time of Encounter: 12:55 Assessment and Plan (1) Intertrochanteric fracture of right femur Current Visit: Yes Status: Acute Xrays of right hip show mildly displaced intertrochanteric fracture. Discussed with Dr. Ruiz who recommend right hip IM nailing. Plan for surgery on 10/13/17. I discussed the procedure as well as r/b/a and she expressed understanding. All questions answered and consent was obtained and placed in chart on floor. She may have breakfast in the morning and then will need to be NPO after breakfast on 10/14/17 NWB until surgery. Pain control per primary team. Ice to hip as needed. Will follow up with Татьяна Jhaveri PA-C in [place] office at [phone]. Office to fax appt card. Qualifiers: Encounter type: initial encounter Fracture type: closed Fracture alignment: displaced Qualified Code(s): S72.141A - Displaced intertrochanteric fracture of right femur, initial encounter for closed fracture (2) Knee pain, right Current Visit: Yes Status: Acute This is an acute flair of chronic knee pain. Xrays show no definitive evidence of fracture. tricompartmental OA with irregularity of the medial tibial plateau. She does have chronic pain from the osteoarthritis but with the increase in pain since fall need to check for possible tibial plateau fracture. Will order CT of knee for further evaluation. NWB to RLE until surgery for hip. Ice and elevate to knee as needed. Qualifiers: Qualified Code(s): M25.561 - Pain in right knee History of Present Illness Chief complaint: left hip and knee pain HPI: Ms. Pressley is a 62 year old female who presented to the ER today with left hip and knee pain that started after she fell around 4am this morning. States she slipped on water in her kitchen and landed on right side. She had instant pain constant since that time but has improved since taking medication here and currently rated 3/10. She admits to having pain on/off to the knee for "awhile" now and had been told she has arthritis. Pain today in knee is somewhat worse than he chronic pain in knee. Denies hitting head or LOC. She has chronic neuropathy in lower extremities and denies any worsening since fall. States she normally ambulates well. Currently denies any chest pain, SOB, fevers. Past Med Surg Social Fam HX - Past Medical History Medical history: atrial fibrillation, GERD, migraine, thyroid disease, other Psychiatric history: no psych history - Past Surgical History Additional surgical history: Lap Band - Social History Smoking Status: Never smoker Smokeless Tobacco Status: No Alcohol use: none Drug use: none - Family History Mother Living Status: Hx Family Endocrine Disorder: Yes (DM) Medications and Allergies Levothyroxine [Synthroid] 100 mcg PO 0630 08/28/16 [History] Omeprazole [PriLOSEC] 20 mg PO BID 08/28/16 [History] Sotalol [Betapace] 80 mg PO Q12H 08/28/16 [History] Zolpidem [Ambien] 10 mg PO HS 08/28/16 [History] Baclofen [Lioresal] 10 mg PO TID 07/13/17 [History] Nabumetone 750 mg PO BID 07/13/17 [History] Oxycodone HCl/Acetaminophen [Percocet 7.5-325 mg Tablet] 1 - 2 tab PO DAILY PRN 07/14/17 [History] 3 Allergy/AdvReac Type Severity Reaction Status Date / Time latex Allergy Itching Verified 07/14/17 00:13 Penicillins AdvReac Redness of Verified 07/14/17 00:13 Skin All Systems Reviewed: The remainder of the systems were reviewed and are negative - Constitutional Constitutional: as per HPI - Cardiovascular Cardiovascular: as per HPI - Respiratory Respiratory: as per HPI - Musculoskeletal Musculoskeletal: as per HPI Physical Exam - Constitutional Vitals: Temp Pulse Resp BP Pulse Ox 97.9 F 68 16 148/79 96 10/13/17 15:34 10/13/17 15:34 10/13/17 15:34 10/13/17 15:34 10/13/17 15:34 - Hip right Tenderness with palpation: anterior (no erythema, ecchymosis or open wounds/ lesions noted to RLE. RLE is externally rotated. Significant tenderness to palpation of anterior hip. ROM of hip and knee restrcted secondary to pain and known fracture. good dorsiflexion of foot. no calf tenderness to palpation. no knee tenderness to palpation. grossly NV intact. ) Results - Labs Result Diagrams: 10/13/17 09:39 10/13/17 09:39 Labs: Abnormal lab results WBC 13.6 K/mcL (4.3-11.1) H 10/13/17 09:39 RDW 15.1 % (11.5-14.5) H 10/13/17 09:39 Neutrophils # 11.1 K/mcL (1.6-8.9) H 10/13/17 09:39 Glucose 138 mg/dL (70-105) H 10/13/17 09:39 Ur Specific [place] 1.007 (1.010-1.025) L 10/13/17 10:22 All other labs normal. - Diagnostic results Hip x-ray: report reviewed, image reviewed Knee CT: pending Consult Discharge Plan - Plan Referrals: Ashwini Kumar MD [Primary Care Provider] - - Attending Attestation Case and plan of care discussed with supervising physician who was available for all aspects of care.
--- NOTE | 2017-10-13 23:16 | Event Note ---
Date of Encounter: 10/13/17 Time of Encounter: 22:02 Alerted by patient's nurse GREGOR Dailey that patient had a non-healing wound on her abdomen from hernia repair approximately 5 years ago. Patient's nurse described wound as slightly erythematous, approximately the length of her little finger, and was concerned for possible infection. I informed patient's nurse that the patient's WBC was currently 13.6. Wound care consult and daily wound care ordered. Anaerobic and wound cultures ordered. Blood cultures 2 ordered as well. Patient's nurse reported she was able to retrieve the cultures from the wound and that the wound was admitting a foul odor. Patient' s nurse reported cleaning and dressing the wound. Patient, cultures, and follow -up labs to be monitored closely.
[2017-10-14] MEDS: OXYCODONE Oral CONC 10 MG/0.5 ML ORAL.SYG SL PRN ×3 (03:32→21:59)
[2017-10-14] MEDS: 0.9 % Sodium Chloride 1,000 ML IVC SCH (03:33)
[2017-10-14] MEDS: *HR* Heparin 5,000 UNIT/ML VIAL SQ SCH ×2 (06:19→17:43)
--- NOTE | 2017-10-14 08:14 | Electrocardiograph Report ---
[address] [id number] Test Date: 2017-10-13 Pat Name: Ashwini Pressley Department: EXAM1 Room: [facility] Gender: F Internal Control Manager: : [id number] Requested By: Татьяна Miller Order Number: [id number] Reading MD: Jasson Link Measurements Intervals Half [address] Rate: 68 P: 28 NC: 176 QRS: 15 QRSD: 99 T: 36 QT: 396 QTc: 422 Interpretive Statements Sinus rhythm Atrial premature complex Low voltage, precordial leads Electronically Signed On 10-14-2017 8:12:33 EDT by Jasson Link
[2017-10-14] MEDS: *HR* HYDROcodone/Acet 5/325 mg TABLET PO PRN ×2 (08:21→17:47)
[2017-10-14] MEDS: Baclofen 10 MG TABLET PO SCH ×2 (08:21→21:58)
[2017-10-14] MEDS ORDERED: Clindamycin 600 MG/50 ML 600 MG/50 ML IV.SOLN IVPB SCH (09:45)
--- NOTE | 2017-10-14 09:50 | Internal Med Progress Note ---
Hospitalist Progress Note - Encounter Date of Encounter: 10/14/17 Time of Encounter: 09:40 - Subjective Interval History: No acute events overnight - Exam Vitals: Temp Pulse Resp BP Pulse Ox 98.1 F 73 15 147/86 95 10/14/17 07:10 10/14/17 07:10 10/14/17 07:10 10/14/17 07:10 10/14/17 07:10 Exam: Gen - Awake, alert, oriented x 3, no acute distress HEENT - NCAT, PERRLA, EOMI, hearing grossly intact, oropharynx benign CV - RRR, normal S1 and S2, no M/R/G, no BLE edema Resp - Normal WOB, CTAB, no W/R/R GI - Soft, NT/ND, no masses, normal bowel sounds, area of cellulitis in skin folds Skin - Warm, dry, no rashes/lesions/ulcers Psych - Normal mood and affect, no depression or anxietyNAD - Assessment and Plan (1) Intertrochanteric fracture of right femur Current Visit: Yes Status: Acute Assessment and Plan: Orthopedic Surgery consulted. Will give pain RX prn. (2) Atrial fibrillation Current Visit: No Status: Chronic Assessment and Plan: On sotalol. Not on home anticoagulation. Currently rate is controlled. INR pending. (3) Hypothyroidism Current Visit: No Status: Chronic Assessment and Plan: Resume home medication. (4) Cellulitis Current Visit: Yes Status: Acute Assessment and Plan: Has abdominal wound with drainage and cellultis. will start on clindamyci 600mg iV q 8hrs. follow up wound cultures (5) DVT prophylaxis Current Visit: Yes Status: Acute Assessment and Plan: Heparin SQ - Time Spent with Patient Total time spent is greater than 50% in coordination of care (as documented) at patient's floor/unit and/or counseling patient: Internal Medicine: Result - Labs CBC & Chem 7: 10/14/17 10:46 10/14/17 10:46 - ABG Interpretation ABG results: PT/INR, D-dimer PT 12.0 Seconds (9.4-12.1) 10/13/17 09:39 - Impressions Impressions Knee CT 10/13/17 13:22 IMPRESSION: 1. Chronic appearing depression of the subchondral bone plate of the medial tibial plateau and medial femoral condyle likely representing chronic fractures. Acute superimposed fractures are considered less likely given the absence of a lipohemarthrosis. 2. Tricompartmental degenerative changes severe in the medial compartment. 3. Irregular appearance of the medial femoral condyle, the distal femoral metaphysis, and medial tibial plateau possibly representing avascular necrosis. D/ / Jasson Mcconnell MD / Jasson Mcconnell MD Interpreting Provider: Jasson Mcconnell MD Consult Discharge Plan - Plan Referrals: Ashwini Kumar MD [Primary Care Provider] - (1) Intertrochanteric fracture of right femur Qualifiers: Encounter type: initial encounter Fracture type: closed Fracture alignment: displaced Qualified Code(s): S72.141A - Displaced intertrochanteric fracture of right femur, initial encounter for closed fracture (2) Atrial fibrillation Qualifiers: Atrial fibrillation type: unspecified Qualified Code(s): I48.91 - Unspecified atrial fibrillation (3) Hypothyroidism Qualifiers: Hypothyroidism type: unspecified Qualified Code(s): E03.9 - Hypothyroidism, unspecified
[2017-10-14 12:10] LABS: Basophils % 0.3 %; Eosinophils # 0.3 K/mcL (0.0-0.6); Eosinophils % 2.7 %; Hematocrit 39.1 % (35.3-44.9); Hemoglobin 12.3 g/dL (11.5-15.4); Immature Granulocytes % 0.4 % (0-4); Lymphocytes # 1.4 K/mcL (0.6-4.6); Lymphocytes % 12.8 %; Mean Corpuscular HGB Conc 31.5 g/dL (31.6-35.5); Mean Corpuscular Hemoglobin 28.9 pg (28.0-33.3); Mean Platelet Volume 11.1 fL (9.4-12.4); Monocytes # 0.7 K/mcL (0.0-1.3); Monocytes % 6.4 %; Neutrophils # 8.5 K/mcL (1.6-8.9); Platelet Count 228 K/mcL (140-400); Red Blood Count 4.25 M/mcL (3.82-4.97); Red Cell Distribution Width 15.5 % (11.5-14.5); Segmented Neutrophils % 77.4 %
[2017-10-14 12:21] LABS: BUN/Creatinine Ratio 20 (6-26); Blood Urea Nitrogen 17 mg/dL (8-23); Calcium 8.1 mg/dL (8.6-10.3); Carbon Dioxide 26 mEq/L (23-29); Chloride 109 mEq/L (98-107); Glucose 225 mg/dL (70-105); Osmolality,Calculated 287 (280-300); Potassium 4.2 mEq/L (3.5-5.1); Sodium 134 mEq/L (136-145); eGFR For Non-African Americans > 60 (> 60)
[2017-10-14] MEDS ORDERED: Lidocaine -MPF 2% 2 ML VIAL ONE (13:16)
[2017-10-14] MEDS ORDERED: *HR* FentaNYL (PF) 100 MCG/2 ML VIAL ONE (13:16)
[2017-10-14] MEDS ORDERED: *HR* Succinylcholine 200 MG/10 ML VIAL IVP ONE (13:16)
[2017-10-14] MEDS ORDERED: Dexamethasone 4 MG/ML VIAL ONE ×2 (13:16→14:35)
[2017-10-14] MEDS ORDERED: Ondansetron 4 MG/2 ML VIAL ONE (13:16)
[2017-10-14] MEDS ORDERED: *HR* Midazolam HCl 2 MG/2 ML VIAL ONE (13:16)
[2017-10-14] MEDS ORDERED: *HR* Propofol 200 MG/20 ML VIAL IVP ONE (13:17)
--- NOTE | 2017-10-14 13:21 | Anesthesia Evaluation PreOp ---
Date of Encounter: 10/14/17 Time of Encounter: 13:55 - Past History Planned Operation: R Hip IM nail Cardiac History: HTN, Hyperlipidemia, Arrhythmia (Afib) Pulmonary History: Denies Any Significant HX CAN MAKER History: Denies Any Significant HX Other Medical History: Thyroid (hypothyroid), GERD Anesthesia History: No Prior Anesthetic Complications, Past Anesthesia (abrahan, gastric bypass) : No Alcohol Use: none Drug use: none Medications and Allergies Levothyroxine [Synthroid] 100 mcg PO 0630 08/28/16 [History] Omeprazole [PriLOSEC] 20 mg PO BID 08/28/16 [History] Sotalol [Betapace] 80 mg PO Q12H 08/28/16 [History] Zolpidem [Ambien] 10 mg PO HS 08/28/16 [History] Baclofen [Lioresal] 10 mg PO TID 07/13/17 [History] Nabumetone 750 mg PO BID 07/13/17 [History] Oxycodone HCl/Acetaminophen [Percocet 7.5-325 mg Tablet] 1 - 2 tab PO DAILY PRN 07/14/17 [History] 3 Allergy/AdvReac Type Severity Reaction Status Date / Time latex Allergy Itching Verified 07/14/17 00:13 Penicillins AdvReac Redness of Verified 07/14/17 00:13 Skin - Meds/Allergy Pre-op Review Medications Reviewed: Yes Allergies Reviewed: Yes Beta Blockers on Current Med List: Yes Anesthesia Results - Labs 10/14/17 10:46 10/14/17 10:46 - Imaging EKG: report reviewed, image reviewed Anesthesia Exam Vital Signs/O2 Sat/Glucose, Most Recent Temp Pulse Resp BP Pulse Ox 97.9 F 75 18 133/71 91 10/14/17 11:22 10/14/17 11:22 10/14/17 11:22 10/14/17 11:22 10/14/17 11:22 Height: 1.68 m Weight: 85 kg NPO (# of Hours): > 8 hr - HEENT Pupil (Motor): Pupils equal Mallampati: II Denture Type: Upper: Complete, Lower: Complete - CAN MAKER LOC: Oriented CAN MAKER Motor: Normal RUE, Normal LUE, Normal RLE, Normal LLE, Normal Face CAN MAKER Sensory: Normal: RUE, LUE, RLE, LLE, Face - Cardiac Rhythm: Regular Murmur: None - Pulmonary Breath Sounds: bilateral Clear Respiratory Effort: Symmetrical Anesthesia Assess/Plan ASA Score: 3 Modified Edi Scale for Level of Consciousness: Cooperative, oriented, and tranquil Anesthetic Plan: General Monitoring Plan: Standard Monitors Recovery Plan: PACU
[2017-10-14] MEDS ORDERED: Clindamycin 600 MG/50 ML 600 MG/50 ML IV.SOLN IVPB ONE ×2 (13:58→16:37)
[2017-10-14] MEDS ORDERED: *HR* Promethazine 25 MG/ML VIAL IVP PRN (14:13)
[2017-10-14] MEDS ORDERED: *HR* Morphine 2 MG/ML SYRINGE IVP PRN (14:13)
[2017-10-14] MEDS ORDERED: *HR* Labetalol 100 MG/20 ML MDV IVP PRN (14:13)
[2017-10-14] MEDS ORDERED: *HR* OxyCODONE Immed Rel 5 MG TABLET PO PRN (14:13)
[2017-10-14] MEDS ORDERED: Ondansetron 4 MG/2 ML VIAL IVP ONE ×2 (14:13→16:37)
[2017-10-14] MEDS ORDERED: Acetaminophen IV 1,000 MG/100 ML INFUS..BTL ONE (14:38)
[2017-10-14] MEDS ORDERED: *HR* PHENYLEPHRINE 1,000 MCG/10 ML SYRINGE IVP ONE (14:59)
--- NOTE | 2017-10-14 15:09 | Orthopedic Operative Note ---
Date of procedure: 10/14/17 Pre-op diagnosis: Right intertrochanteric hip fracture Post-op diagnosis: same Procedure: Procedure: Right hip open reduction intramedullary nail fixation Estimated blood loss: 50 cc Hardware: Metal: Synthes 10 x 130 degree TFN, 105 mm helical blade, 36 mm distal locking bolt Operative procedure: The patient was brought to the operating room and placed on the operating room table. After general anesthesia was administered the well leg was place in the well leg cisneros and the operative leg was placed in the fracture leg cisneros. All pressure points were padded appropriately. The operative extremity was prepped and draped in the sterile surgical fashion patient received IV antibiotic prior to skin incision. A standard direct lateral approach was made over the entry point of the greater trochanter, the incision was made through the skin and subcutaneous tissue hemostasis was obtained with Bovie cautery. Using careful sharp dissection the fascia was identified and incised, flouroscopic assistance was used to identify the entry point. The guidepin was placed at the entry point using fluroscopic assistance, it was over reamed with the proximal reamer. The 10 mm by 130 degree nail was placed through the entry hole, across the fracture site into the distal fragment the position was confirmed with fluroscopy. A guide pin was placed through the proximal locking guide from the lateral femur through the nail across the fracture site into the femoral head, it was over reamed with the reamer. The 105 mm helical blade was placed over the guide pin through the nail into the femoral head, locked in place with the proximal locking bolt. Distal locking bolt was placed through the 36 mm distal locking guide. position of hardware and fracture reduction found to be acceptable with fluroscopic assistance. The wound was irrigated. Fascia was closed with a running #2 PDS suture. The deep tissue was irrigated and closed deep with #1 PDS suture superficially with 0 PDS suture and skin was closed with skin viktoriya. The patient was placed in a sterile dressing The patient was extubated and transferred to the recovery room in stable condition. Anesthesia: GETA Surgeon: Nadeem Gu Was there an residential assistant present: No Estimated blood loss (cc): 50 Condition: stable Disposition: PACU
--- NOTE | 2017-10-14 15:53 | Anesthesia Evaluation Post Op ---
Date of Encounter: 10/14/17 Time of Encounter: 15:45 - Vital Signs Vital Signs: Vital Signs - Last 8 Hours Temp Pulse Resp BP Pulse Ox 10/14/17 15:47 98.1 F 73 18 125/59 91 10/14/17 15:37 77 18 127/65 92 10/14/17 15:27 76 16 143/69 99 10/14/17 15:17 97.5 F L 78 16 146/84 92 10/14/17 13:53 75 15 147/81 93 10/14/17 11:22 97.9 F 75 18 133/71 91 Intake and Output 10/13/17 10/14/17 10/14/17 23:59 07:59 15:59 Intake Total 240 / 240 1175 / 1175 290 / 290 Output Total 910 / 910 450 / 450 325 / 325 Balance -670 / -670 725 / 725 -35 / -35 Intake: IV Fluids 1000 / 1000 50 / 50 0.9 % Sodium Chloride 1,000 ML 1000 / 1000 @ 75 mls/hr IVC .[id number] [facility] Rx #:[id number] Cleocin Premix 600 MG/50 ML 600 50 / 50 mg In 50 ml @ 50 mls/hr IVPB Q8HR [facility] Rx#:[id number] Oral 240 / 240 175 / 175 240 / 240 Output: Catheter 910 / 910 450 / 450 325 / 325 Other: Meal Dinner Breakfast Percent of Meal Consumed 80% 90% - Lungs Lungs: Clear Ascult./Percussion - Airway Airway: Non-obstructed - Cardiovascular Regular Rate, Baseline Rhythm - Mental Status Mental Status: Alert & Oriented, Answers Appropriately - Pain Pain Scale: 0 Pain Scale used: Numeric (1 - 10) - Nausea Vomiting Nausea Vomiting: Not Present - Hydration Hydration: Tolerates oral liquids - Discharge PostOp Status: Transfer Patient to floor
[2017-10-14] MEDS ORDERED: Clindamycin 900 MG/50 ML 900 MG/50 ML IV.SOLN IVPB SCH (16:37)
[2017-10-14] MEDS ORDERED: Acetaminophen 325 MG TABLET PO PRN (16:37)
[2017-10-14] MEDS ORDERED: Naloxone 0.4 MG/ML INJ IVP PRN ×2 (16:37)
[2017-10-14] MEDS ORDERED: 0.9 % Sodium Chloride 1,000 ML IVC SCH (16:37)
--- NOTE | 2017-10-14 17:06 | Event Note ---
Date of Encounter: 10/14/17 Time of Encounter: 12:25 time of visit: 12:25pm - Discussed with patient that the OR was currently shut down due to Code Yellow and that surgery would likely be delayed to tomorrow. She expressed understanding. Will keep NPO until final decision about OR has been made. 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 Discussed that she would likely need TKR down the road based on OA findings but can follow with sports med for conservative treatment for now. She expressed understanding. Update 12:55pm - OR has opened again and Dr. Gu will now be performing the procedure today. Keep patient NPO
[2017-10-14] MEDS: Clindamycin 600 MG/50 ML 600 MG/50 ML IV.SOLN IVPB SCH (23:33)
[2017-10-15] MEDS ORDERED: Clindamycin 600 MG/50 ML 600 MG/50 ML IV.SOLN IVPB SCH
[2017-10-15] MEDS: OXYCODONE Oral CONC 10 MG/0.5 ML ORAL.SYG SL PRN ×3 (05:08→22:42)
[2017-10-15] MEDS: *HR* Heparin 5,000 UNIT/ML VIAL SQ SCH ×2 (06:29→18:14)
--- NOTE | 2017-10-15 08:06 | Orthopedics Progress Note ---
Date of Encounter: 10/15/17 Time of Encounter: 08:05 Subjective Interval history: Patient was seen this morning doing well without complaints. Afebrile vital signs stable. Operative extremity: Neurovascularly intact Dressing clean dry and intact Calves nontender Assessment and plan: Continue with postoperative care Hematocrit 39 ortho stable for discharge Objective Vital signs: Vital Signs Temp Pulse Resp BP Pulse Ox 10/15/17 07:04 98.1 F 73 16 138/80 100 10/15/17 04:20 97.8 F 70 16 147/83 98 10/14/17 23:31 98.3 F 73 14 136/79 98 10/14/17 18:30 97.4 F L 77 18 151/73 97 10/14/17 17:30 97.1 F L 75 18 121/63 97 10/14/17 17:00 98.9 F 70 17 129/71 97 10/14/17 16:30 97.3 F L 71 16 126/73 95 10/14/17 15:57 98.1 F 72 18 132/65 91 10/14/17 15:47 98.1 F 73 18 125/59 91 10/14/17 15:37 77 18 127/65 92 10/14/17 15:27 76 16 143/69 99 10/14/17 15:17 97.5 F L 78 16 146/84 92 10/14/17 13:53 75 15 147/81 93 10/14/17 11:22 97.9 F 75 18 133/71 91 Intake and Output 10/14/17 10/15/17 10/15/17 23:59 07:59 15:59 Intake Total 50 / 50 Output Total 1100 / 1100 300 / 300 Balance -1100 / -1100 -250 / -250 Intake: IV Fluids 50 / 50 Cleocin Premix 600 MG/50 ML 600 50 / 50 mg In 50 ml @ 50 mls/hr IVPB Q8HR [facility] Rx#:[id number] Output: Catheter 1100 / 1100 300 / 300 - Labs CBC & BMP: 10/14/17 10:46 10/14/17 10:46 Labs: Abnormal lab results MCHC 31.5 g/dL (31.6-35.5) L 10/14/17 10:46 RDW 15.5 % (11.5-14.5) H 10/14/17 10:46 Sodium 134 mEq/L (136-145) L 10/14/17 10:46 Chloride 109 mEq/L (98-107) H 10/14/17 10:46 Glucose 225 mg/dL (70-105) H 10/14/17 10:46 Calcium 8.1 mg/dL (8.6-10.3) L 10/14/17 10:46 Ur Specific [place] 1.007 (1.010-1.025) L 10/13/17 10:22 - VTE Documentation of Mechanical Device: Venous foot pump, device Consult Discharge Plan - Plan Referrals: Ashwini Kumar MD [Primary Care Provider] -
[2017-10-15 09:23] LABS: Basophils % 0.3 %; Eosinophils % 0.4 %; Hematocrit 35.6 % (35.3-44.9); Hemoglobin 11.4 g/dL (11.5-15.4); Immature Granulocytes % 0.4 % (0-4); Lymphocytes # 1.5 K/mcL (0.6-4.6); Mean Corpuscular Hemoglobin 29.2 pg (28.0-33.3); Mean Corpuscular Volume 91.3 fL (83.0-100.0); Mean Platelet Volume 10.8 fL (9.4-12.4); Monocytes # 0.9 K/mcL (0.0-1.3); Monocytes % 7.7 %; Neutrophils # 8.9 K/mcL (1.6-8.9); Platelet Count 212 K/mcL (140-400); Red Cell Distribution Width 15.3 % (11.5-14.5); Segmented Neutrophils % 78.2 %
[2017-10-15 09:42] LABS: BUN/Creatinine Ratio 19 (6-26); Blood Urea Nitrogen 15 mg/dL (8-23); Calcium 8.1 mg/dL (8.6-10.3); Carbon Dioxide 30 mEq/L (23-29); Chloride 104 mEq/L (98-107); Glucose 122 mg/dL (70-105); Magnesium 1.7 mg/dL (1.6-2.6); Osmolality,Calculated 284 (280-300); Phosphorous 2.5 mg/dL (2.7-4.5); Potassium 4.5 mEq/L (3.5-5.1); Sodium 136 mEq/L (136-145); eGFR For Non-African Americans > 60 (> 60)
[2017-10-15] MEDS: *HR* HYDROcodone/Acet 5/325 mg TABLET PO PRN (09:53)
[2017-10-15] MEDS: Clindamycin 600 MG/50 ML 600 MG/50 ML IV.SOLN IVPB SCH ×3 (09:54→23:23)
[2017-10-15] MEDS: Baclofen 10 MG TABLET PO SCH ×3 (09:54→21:10)
--- NOTE | 2017-10-15 11:48 | Internal Med Progress Note ---
Hospitalist Progress Note - Encounter Date of Encounter: 10/15/17 Time of Encounter: 11:00 - Subjective Interval History: No acute events overnight - Exam Vitals: Temp Pulse Resp BP Pulse Ox 98.1 F 69 16 149/83 100 10/15/17 11:07 10/15/17 11:07 10/15/17 11:07 10/15/17 11:07 10/15/17 11:07 Exam: Gen - Awake, alert, oriented x 3, no acute distress HEENT - NCAT, PERRLA, EOMI, hearing grossly intact, oropharynx benign CV - RRR, normal S1 and S2, no M/R/G, no BLE edema Resp - Normal WOB, CTAB, no W/R/R GI - Soft, NT/ND, no masses, normal bowel sounds, area of cellulitis in skin folds Skin - Warm, dry, no rashes/lesions/ulcers Psych - Normal mood and affect, no depression or anxietyNAD - Assessment and Plan (1) Intertrochanteric fracture of right femur Current Visit: Yes Status: Acute Assessment and Plan: Pt is s/p ORIF on 10/14. Tolerated procedure well with no acute complications. Will obtain physical therapy assessment for discharge planning (2) Atrial fibrillation Current Visit: No Status: Chronic Assessment and Plan: On sotalol. Not on home anticoagulation. Currently rate is controlled. (3) Hypothyroidism Current Visit: No Status: Chronic Assessment and Plan: Resume home medication. (4) Cellulitis Current Visit: Yes Status: Acute Assessment and Plan: Has abdominal wound with drainage and cellultis. will start on clindamyci 600mg iV q 8hrs. follow up wound cultures (5) Knee pain, right Current Visit: Yes Status: Acute Assessment and Plan: Has severe degenerative changes likely 2/2 to osteoarthritis. conservative management for now per orthopedic surgery. Will likely need total knee replacement [facility] (6) DVT prophylaxis Current Visit: Yes Status: Acute Assessment and Plan: Heparin SQ - Time Spent with Patient Total time spent is greater than 50% in coordination of care (as documented) at patient's floor/unit and/or counseling patient: Internal Medicine: Result - Labs CBC & Chem 7: 10/15/17 09:04 10/15/17 09:04 Labs: Short CBC 10/14/17 10/15/17 Range/Units 10:46 09:04 WBC 11.0 11.4 H (4.3-11.1) K/mcL Hgb 12.3 11.4 L (11.5-15.4) g/dL Hct 39.1 35.6 (35.3-44.9) % Plt Count 228 212 (140-400) K/mcL Neutrophils # 8.5 8.9 (1.6-8.9) K/mcL BMP 10/14/17 10/15/17 10:46 09:04 Sodium 134 L 136 Potassium 4.2 4.5 Chloride 109 H 104 Carbon Dioxide 26 30 H BUN 17 15 Creatinine 0.87 0.81 Glucose 225 H 122 H Calcium 8.1 L 8.1 L - ABG Interpretation ABG results: PT/INR, D-dimer PT 12.0 Seconds (9.4-12.1) 10/13/17 09:39 - Impressions Impressions Fluoroscopy 10/14/17 00:00 IMPRESSION: Intraprocedural fluoroscopic spot images as above. See separate procedure report for more information. D/ / Joel Valdes MD / Joel Valdes MD Interpreting Provider: Joel Valdes MD Hip X-Ray 10/14/17 00:00 IMPRESSION: Intraprocedural fluoroscopic spot images as above. See separate procedure report for more information. D/ / Joel Valdes MD / Joel Valdes MD Interpreting Provider: Joel Valdes MD Hip X-Ray 10/14/17 14:26 IMPRESSION: Expected postsurgical changes from interval internal fixation of right intertrochanteric femoral fracture with near anatomic alignment. D/ / 10/14/2017 15:58:32 Subha Alejo MD / bcarter Interpreting Provider: Subha Alejo MD - VTE Documentation of Mechanical Device: Venous foot pump, device Consult Discharge Plan - Plan Referrals: Tenpenny,Ashwini Carolyn, MD [Primary Care Provider] - (1) Intertrochanteric fracture of right femur Qualifiers: Encounter type: initial encounter Fracture type: closed Fracture alignment: displaced Qualified Code(s): S72.141A - Displaced intertrochanteric fracture of right femur, initial encounter for closed fracture (2) Atrial fibrillation Qualifiers: Atrial fibrillation type: unspecified Qualified Code(s): I48.91 - Unspecified atrial fibrillation (3) Hypothyroidism Qualifiers: Hypothyroidism type: unspecified Qualified Code(s): E03.9 - Hypothyroidism, unspecified
--- NOTE | 2017-10-15 13:34 | Event Note ---
Date of Encounter: 10/15/17 Time of Encounter: 12:40 PCR - POD#1 s/p Right hip open reduction intramedullary nail fixation 10/14/17 Gu Patient seen at bedside. A&O x 3 States her knee pain is actually worse than her hip pain but she again reports that her knee pain has been there for years just a little worse since the fall, she has multiple previous injuries to knee. Again, xray/CT of knee showed no acute abnormalities but does have severe OA which I discussed at length with patient again today. Afebrile, vital signs stable. Labs reviewed. H/H 11.4/35.6- stable, asymptomatic Pain control: adequate Participating in PT. TTWB All questions and concerns addressed. Educated on use of incentive spirometer. Encouraged ambulation and proper hydration. Patient educated on post-operative restrictions and post-operative care. Assessment and plan: Continue with postoperative care Discharge plan: ECF, awaiting acceptance at [facility] likely tomorrow
[2017-10-15] MEDS: Leptospermum Honey Gel 44 ML TUBE TP SCH (21:26)
[2017-10-16 01:42] LABS: Basophils % 0.3 %; Eosinophils # 0.3 K/mcL (0.0-0.6); Eosinophils % 3.9 %; Hematocrit 34.4 % (35.3-44.9); Hemoglobin 10.7 g/dL (11.5-15.4); Immature Granulocytes % 0.3 % (0-4); Lymphocytes # 2.2 K/mcL (0.6-4.6); Lymphocytes % 24.8 %; Mean Corpuscular HGB Conc 31.1 g/dL (31.6-35.5); Mean Corpuscular Hemoglobin 28.5 pg (28.0-33.3); Mean Corpuscular Volume 91.7 fL (83.0-100.0); Mean Platelet Volume 10.9 fL (9.4-12.4); Monocytes # 0.8 K/mcL (0.0-1.3); Monocytes % 9.1 %; Neutrophils # 5.4 K/mcL (1.6-8.9); Platelet Count 213 K/mcL (140-400); Red Blood Count 3.75 M/mcL (3.82-4.97); Red Cell Distribution Width 15.6 % (11.5-14.5); Segmented Neutrophils % 61.6 %
[2017-10-16 01:57] LABS: BUN/Creatinine Ratio 20 (6-26); Blood Urea Nitrogen 18 mg/dL (8-23); Calcium 8.3 mg/dL (8.6-10.3); Carbon Dioxide 30 mEq/L (23-29); Chloride 106 mEq/L (98-107); Glucose 103 mg/dL (70-105); Magnesium 1.8 mg/dL (1.6-2.6); Osmolality,Calculated 290 (280-300); Phosphorous 3.4 mg/dL (2.7-4.5); Potassium 4.6 mEq/L (3.5-5.1); Sodium 139 mEq/L (136-145); eGFR For Non-African Americans > 60 (> 60)
[2017-10-16] MEDS: OXYCODONE Oral CONC 10 MG/0.5 ML ORAL.SYG SL PRN ×3 (03:54→13:17)
[2017-10-16] MEDS: *HR* Heparin 5,000 UNIT/ML VIAL SQ SCH (05:46)
[2017-10-16] MEDS: Leptospermum Honey Gel 44 ML TUBE TP SCH (06:06)
--- NOTE | 2017-10-16 06:57 | Orthopedics Progress Note ---
Date of Encounter: 10/16/17 Time of Encounter: 06:57 Subjective Interval history: Patient was seen this morning doing well without complaints. Afebrile vital signs stable. Operative extremity: Neurovascularly intact Dressing clean dry and intact Calves nontender Assessment and plan: Continue with postoperative care ortho stable for discharge Objective Vital signs: Vital Signs Temp Pulse Resp BP Pulse Ox 10/16/17 06:53 72 94 10/16/17 06:38 97.9 F 65 18 129/77 93 10/16/17 00:49 97.7 F 70 14 114/67 95 10/15/17 20:25 98.2 F 70 16 133/63 96 10/15/17 15:34 97.6 F 18 127/69 99 10/15/17 11:07 98.1 F 69 16 149/83 100 10/15/17 07:04 98.1 F 73 16 138/80 100 Intake and Output 10/15/17 10/15/17 10/16/17 15:59 23:59 07:59 Intake Total 490 / 490 50 / 50 450 / 450 Output Total 250 / 250 100 / 100 450 / 450 Balance 240 / 240 -50 / -50 0 / 0 Intake: IV Fluids 50 / 50 50 / 50 50 / 50 Cleocin Premix 600 MG/50 ML 600 50 / 50 50 / 50 50 / 50 mg In 50 ml @ 50 mls/hr IVPB Q8HR [facility] Rx#:[id number] Oral 440 / 440 400 / 400 Output: Urine 250 / 250 100 / 100 450 / 450 Other: Meal Lunch Percent of Meal Consumed 40% # Voids 1 1 - Labs CBC & BMP: 10/16/17 01:22 10/16/17 01:22 Labs: Abnormal lab results RBC 3.75 M/mcL (3.82-4.97) L 10/16/17 01:22 Hgb 10.7 g/dL (11.5-15.4) L 10/16/17 01:22 Hct 34.4 % (35.3-44.9) L 10/16/17 01:22 MCHC 31.1 g/dL (31.6-35.5) L 10/16/17 01:22 RDW 15.6 % (11.5-14.5) H 10/16/17 01:22 Carbon Dioxide 30 mEq/L (23-29) H 10/16/17 01:22 Calcium 8.3 mg/dL (8.6-10.3) L 10/16/17 01:22 Ur Specific [place] 1.007 (1.010-1.025) L 10/13/17 10:22 - VTE Documentation of Mechanical Device: Venous foot pump, device Consult Discharge Plan - Plan Referrals: Ashwini Kumar MD [Primary Care Provider] -
[2017-10-16] MEDS: Baclofen 10 MG TABLET PO SCH ×2 (08:37→15:47)
[2017-10-16] MEDS: Clindamycin 600 MG/50 ML 600 MG/50 ML IV.SOLN IVPB SCH (08:40)
--- NOTE | 2017-10-16 11:39 | Internal Med Progress Note ---
Hospitalist Progress Note - Encounter Date of Encounter: 10/16/17 Time of Encounter: 11:30 - Subjective Interval History: No acute events overnight - Exam Vitals: Temp Pulse Resp BP Pulse Ox 98.5 F 110 18 127/74 92 10/16/17 10:38 10/16/17 10:38 10/16/17 10:38 10/16/17 10:38 10/16/17 10:38 Exam: Gen - Awake, alert, oriented x 3, no acute distress HEENT - NCAT, PERRLA, EOMI, hearing grossly intact, oropharynx benign CV - RRR, normal S1 and S2, no M/R/G, no BLE edema Resp - Normal WOB, CTAB, no W/R/R GI - Soft, NT/ND, no masses, normal bowel sounds, area of cellulitis in skin folds Skin - Warm, dry, no rashes/lesions/ulcers Psych - Normal mood and affect, no depression or anxietyNAD - Assessment and Plan (1) Intertrochanteric fracture of right femur Current Visit: Yes Status: Acute Assessment and Plan: Pt is s/p ORIF on 10/14. Tolerated procedure well with no acute complications. Will obtain physical therapy assessment for discharge planning. Physical therapy recommend inpatient rehab. Social work on board (2) Atrial fibrillation Current Visit: No Status: Chronic Assessment and Plan: On sotalol. Not on home anticoagulation. Currently rate is controlled. (3) Hypothyroidism Current Visit: No Status: Chronic Assessment and Plan: Resume home medication. (4) Cellulitis Current Visit: Yes Status: Acute Assessment and Plan: Has abdominal wound with drainage and cellultis. will start on clindamycin 600mg iV q 8hrs. follow up wound cultures WBC trended down. Wound cultures came back positive for penicillin G. discussed with pharmacy, will start on po bactrim (5) Knee pain, right Current Visit: Yes Status: Acute Assessment and Plan: Has severe degenerative changes likely 2/2 to osteoarthritis. conservative management for now per orthopedic surgery. [facility] (6) DVT prophylaxis Current Visit: Yes Status: Acute Assessment and Plan: Heparin SQ - Time Spent with Patient Total time spent is greater than 50% in coordination of care (as documented) at patient's floor/unit and/or counseling patient: Internal Medicine: Result - Labs CBC & Chem 7: 10/16/17 01:22 10/16/17 01:22 Labs: Short CBC 10/16/17 Range/Units 01:22 WBC 8.8 (4.3-11.1) K/mcL Hgb 10.7 L (11.5-15.4) g/dL Hct 34.4 L (35.3-44.9) % Plt Count 213 (140-400) K/mcL Neutrophils # 5.4 (1.6-8.9) K/mcL BMP 10/16/17 01:22 Sodium 139 Potassium 4.6 Chloride 106 Carbon Dioxide 30 H BUN 18 Creatinine 0.90 Glucose 103 Calcium 8.3 L - ABG Interpretation ABG results: PT/INR, D-dimer PT 12.0 Seconds (9.4-12.1) 10/13/17 09:39 - VTE Documentation of Mechanical Device: Venous foot pump, device Consult Discharge Plan - Plan Referrals: Ashwini Kumar MD [Primary Care Provider] - (1) Intertrochanteric fracture of right femur Qualifiers: Encounter type: initial encounter Fracture type: closed Fracture alignment: displaced Qualified Code(s): S72.141A - Displaced intertrochanteric fracture of right femur, initial encounter for closed fracture (2) Atrial fibrillation Qualifiers: Atrial fibrillation type: unspecified Qualified Code(s): I48.91 - Unspecified atrial fibrillation (3) Hypothyroidism Qualifiers: Hypothyroidism type: unspecified Qualified Code(s): E03.9 - Hypothyroidism, unspecified
[2017-10-16] MEDS ORDERED: levoFLOXacin 750 MG TABLET PO SCH (11:45)
--- NOTE | 2017-10-16 11:56 | Discharge Summary ---
Orders not resulted at time of discharge: Pending orders 10/13/17 23:01 Culture,Anaerobic [RM] Stat 10/13/17 23:32 Culture,Blood [BC] Routine 10/17/17 04:00 Basic Metabolic Panel AM 0400 Complete Blood Count [HEME] AM 0400 Magnesium AM 0400 Phosphorous AM 0400 10/18/17 04:00 Basic Metabolic Panel AM 0400 Complete Blood Count [HEME] AM 0400 Magnesium AM 0400 Phosphorous AM 0400 10/19/17 04:00 Basic Metabolic Panel AM 0400 Complete Blood Count [HEME] AM 0400 Magnesium AM 0400 Phosphorous AM 0400 10/20/17 04:00 Basic Metabolic Panel AM 0400 Complete Blood Count [HEME] AM 0400 Magnesium AM 0400 Phosphorous AM 0400 Date of Encounter: 10/16/17 Time of Encounter: 11:30 - Discharge Diagnosis (1) Intertrochanteric fracture of right femur Priority: Primary Status: Acute Assessment and Plan: 62 year old female with history of atrial fibrillation, hypothyroidism post thyroidectomy, migraines, presented after a fall. Patient states she was making toast and did not see that there was water on the floor. She fell backwards and landed on her hip. She denies any head contusion, dizziness, chest pain, palpitations, diaphoresis, headaches, blurry vision prior to fall. In the ED, an x-ray of the right hip showed mildly displaced intertrochanteric fracture of proximal right femur. Orthopedic surgery was consulted and patient had an ORIF of the right hip done on 10/14. She tolerated procedure well with no acute complications. She was seen by physical therapy who recommend inpatient rehab. She was discharged to rehab in a stable condition. She was also noted to have severe degenrative joint disease of right knee for which orthopedic surgery recommended outpatient followup. She also has cellultis of her abdomen for which she has been treated with clindamycin and will be discharged on a course of bactrim Qualifiers: Encounter type: initial encounter Fracture type: closed Fracture alignment: displaced Qualified Code(s): S72.141A - Displaced intertrochanteric fracture of right femur, initial encounter for closed fracture (2) Atrial fibrillation Priority: Secondary Status: Chronic Qualifiers: Atrial fibrillation type: unspecified Qualified Code(s): I48.91 - Unspecified atrial fibrillation (3) Hypothyroidism Priority: Secondary Status: Chronic Qualifiers: Hypothyroidism type: unspecified Qualified Code(s): E03.9 - Hypothyroidism , unspecified (4) Cellulitis Priority: Secondary Status: Acute Qualifiers: Site of cellulitis of trunk: abdominal wall Qualified Code(s): L03.311 - Cellulitis of abdominal wall (5) Knee pain, right Priority: Secondary Status: Acute Qualifiers: Qualified Code(s): M25.561 - Pain in right knee; G89.29 - Other chronic pain (6) DVT prophylaxis Priority: Secondary Status: Acute Hospital course: Ms. Pressley is a 62 year old female - Time Spent with Patient Total time spent providing and/or coordinating discharge services: - Discharge Medications Prescriptions: Calcium Carbonate [Tums] 500 mg PO Q8HR PRN #60 tab.chew PRN Reason: Heartburn Oxycodone HCl/Acetaminophen [Percocet 7.5-325 mg Tablet] 1 tab PO DAILY PRN 5 Days #14 tablet PRN Reason: Mild To Moderate Pain Sulfamethoxazole/Trimeth DS [Bactrim Ds] 1 each PO BID #10 tablet Zolpidem [Ambien] 10 mg PO HS 7 Days #7 tablet Home Medications: Levothyroxine [Synthroid] 100 mcg PO 0630 08/28/16 [History] Omeprazole [PriLOSEC] 20 mg PO BID 08/28/16 [History] Sotalol [Betapace] 80 mg PO Q12H 08/28/16 [History] Baclofen [Lioresal] 10 mg PO TID 07/13/17 [History] Nabumetone 750 mg PO BID 07/13/17 [History] Calcium Carbonate [Tums] 500 mg PO Q8HR PRN #60 tab.chew 10/16/17 [Rx] Oxycodone HCl/Acetaminophen [Percocet 7.5-325 mg Tablet] 1 tab PO DAILY PRN 5 Days #14 tablet 10/16/17 [Rx] Sulfamethoxazole/Trimeth DS [Bactrim Ds] 1 each PO BID #10 tablet 10/16/17 [Rx] Zolpidem [Ambien] 10 mg PO HS 7 Days #7 tablet 10/16/17 [Rx] Allergies/Adverse Reactions: 3 Allergy/AdvReac Type Severity Reaction Status Date / Time latex Allergy Itching Verified 07/14/17 00:13 Penicillins AdvReac Redness of Verified 07/14/17 00:13 Skin Date of admission: 10/13/17 10:45 Primary care physician: Ashwini Kumar MD Consults: 10/13/17 11:31 Consult to Orthopedic Surgery [CONS] Routine Consulting Provider: [facility] Reason for Consult: Hip fracture Call Completed: Yes 10/13/17 22:04 Consult to Wound Care [CONS] Routine Reason for Consult: Pt. has non-healing wound on the abdomen from previous surgery. Please make recommendations for daily wound care. Call Completed: No 10/14/17 16:37 Consult to Occupational Therapy [CONS] Routine Comment: Evaluate, develop and implement POC Reason for Consult: post hip surgery Does patient have active BEDREST order?: No Is patient medically & hemodynamically stable?: Yes Patient assessed for mobility or mobilized this visit?: Yes Consult to Orthopedic Navigator [CONS] [CONS] Routine Consult to Physical Therapy [CONS] Routine Comment: Evaluate, develop and implement POC Reason for Consult: post hip surgery Does patient have active BEDREST order?: No Is patient medically & hemodynamically stable?: Yes Patient assessed for mobility or mobilized this visit?: Yes Consult to Glass Cutting Machine Operator [CONS] Routine Reason for SW Consult: post -op hip fracture RT Post Op Consult [CONS] Routine 10/15/17 11:43 Consult to Physical Therapy [CONS] Routine Comment: Evaluate, develop and implement POC Reason for Consult: s/p hip surgery Does patient have active BEDREST order?: No Is patient medically & hemodynamically stable?: Yes Patient assessed for mobility or mobilized this visit?: No 10/15/17 12:40 Consult to Occupational Therapy [CONS] Routine Comment: Evaluate, develop and implement POC Reason for Consult: d/c planning Does patient have active BEDREST order?: No Is patient medically & hemodynamically stable?: Yes Patient assessed for mobility or mobilized this visit?: Yes - Constitutional Vitals: Temp Pulse Resp BP Pulse Ox 98.5 F 110 18 127/74 92 10/16/17 10:38 10/16/17 10:38 10/16/17 10:38 10/16/17 10:38 10/16/17 10:38 General appearance: Present: A&O X 3, answers questions appropriately Exam: Gen - Awake, alert, oriented x 3, no acute distress HEENT - NCAT, PERRLA, EOMI, hearing grossly intact, oropharynx benign CV - RRR, normal S1 and S2, no M/R/G, no BLE edema Resp - Normal WOB, CTAB, no W/R/R GI - Soft, NT/ND, no masses, normal bowel sounds, area of cellulitis in skin folds Skin - Warm, dry, no rashes/lesions/ulcers Psych - Normal mood and affect, no depression or anxietyNAD - Patient Status Disposition: Transfer SNF Condition: Good - Discharge Instructions Follow Up With: Татьяна Jhaveri PAC [Physician Roving Hauler] - 10/28/17 10:00 am (and 11/11/17 at 11:00 AM) Nadeem Gu MD [Partnered Physician] - 11/25/17 4:15 pm Moises Gutierrez MD [Non-Partnered Physician] - 10/20/17 1:00 pm (At [facility]) Ashwini Kumar MD [Primary Care Provider] - - VTE Documentation of Mechanical Device: Venous foot pump, device
--- NOTE | 2017-10-16 11:58 | Physician Discharge Referral ---
- Diagnosis (1) Intertrochanteric fracture of right femur Priority: Primary Status: Acute (2) Atrial fibrillation Priority: Secondary Status: Chronic (3) Hypothyroidism Priority: Secondary Status: Chronic (4) Cellulitis Priority: Secondary Status: Acute (5) Knee pain, right Priority: Secondary Status: Acute (6) DVT prophylaxis Priority: Secondary Status: Acute - Transfer Medications Prescriptions: Calcium Carbonate [Tums] 500 mg PO Q8HR PRN #60 tab.chew PRN Reason: Heartburn Sulfamethoxazole/Trimeth DS [Bactrim Ds] 1 each PO BID #10 tablet Home Medications: Levothyroxine [Synthroid] 100 mcg PO 0630 08/28/16 [History] Omeprazole [PriLOSEC] 20 mg PO BID 08/28/16 [History] Sotalol [Betapace] 80 mg PO Q12H 08/28/16 [History] Zolpidem [Ambien] 10 mg PO HS 08/28/16 [History] Baclofen [Lioresal] 10 mg PO TID 07/13/17 [History] Nabumetone 750 mg PO BID 07/13/17 [History] Oxycodone HCl/Acetaminophen [Percocet 7.5-325 mg Tablet] 1 - 2 tab PO DAILY PRN 07/14/17 [History] Calcium Carbonate [Tums] 500 mg PO Q8HR PRN #60 tab.chew 10/16/17 [Rx] Sulfamethoxazole/Trimeth DS [Bactrim Ds] 1 each PO BID #10 tablet 10/16/17 [Rx] Allergies/Adverse Reactions: 3 Allergy/AdvReac Type Severity Reaction Status Date / Time latex Allergy Itching Verified 07/14/17 00:13 Penicillins AdvReac Redness of Verified 07/14/17 00:13 Skin - Respiratory Orders Smoking Cessation: Smoking cessation has been advised. For more information, call the [place] Tobacco Quit Line at 7-363-QPOQ-NOW. - Mobility Orders Chair - Rehabiliation Orders Rehab Potential: Good CERTIFICATION: I certify that the transfer of the above named patient to an Extended Care Facility is necessary for the continuing treatment of the diagnosis listed. The above information is true and accurate reflection of patient's current condition. Confidential - Redisclosure prohibited without a patient's written consent.
[2017-10-16 15:19] VITALS: BP 136/78
[2017-10-16] MEDS ORDERED: Acetaminophen 325 MG TABLET PO ONE (16:08)
[2017-10-16] MEDS ORDERED: Sulfamethoxazole/Trimeth DS 1 EACH TABLET PO SCH ×2 (21:00)
== END 2017-10-16 16:15 | DRG 481 ==
LOC: EMEROOARM 08:51 → SUATTDRO 10:45 → 3NENU 10:45
PROVIDERS: ADMIT Student in an Organized Health Care Education/Training Program; ATTEND Student in an Organized Health Care Education/Training Program

== ENCOUNTER 2017-10-30 13:40 | Inpatient (IN) ==
--- NOTE | 2017-10-30 11:46 | Anesthesia Evaluation PreOp ---
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: Other (ANXIETY, INSOMNIA) Other Medical History: Bleeding (POST OPERATIVE ANEMIA), Thyroid, Other (RT HIP ORIF & IM NAIL 09/17, FEMORAL NECK NAIL ADVANCEMENT INTO THE ACETABULAR JOINT) Anesthesia History: No Prior Anesthetic Complications, Past Anesthesia (GB, GASTRIC BYPASS) Alcohol Use: none Drug use: none Medications and Allergies Levothyroxine [Synthroid] 100 mcg PO 0630 08/28/16 [History] Omeprazole [PriLOSEC] 20 mg PO BID 08/28/16 [History] Sotalol [Betapace] 80 mg PO Q12H 08/28/16 [History] Baclofen [Lioresal] 10 mg PO TID 07/13/17 [History] Nabumetone 750 mg PO BID 07/13/17 [History] Calcium Carbonate [Tums] 500 mg PO Q8HR PRN #60 tab.chew 10/16/17 [Rx] Oxycodone HCl/Acetaminophen [Percocet 7.5-325 mg Tablet] 1 tab PO DAILY PRN 5 Days #14 tablet 10/16/17 [Rx] Sulfamethoxazole/Trimeth DS [Bactrim Ds] 1 each PO BID #10 tablet 10/16/17 [Rx] Zolpidem [Ambien] 10 mg PO HS 7 Days #7 tablet 10/16/17 [Rx] Aspirin Enteric Coated [Aspirin EC] 325 mg PO BID #20 tablet. 10/30/17 [Rx] OxyCODONE Immed Rel [Roxicodone 5 MG] 5 mg PO Q4HR PRN 4 Days #20 tablet [Rx] 3 Allergy/AdvReac Type Severity Reaction Status Date / Time latex Allergy Itching Verified 07/14/17 00:13 Penicillins AdvReac Redness of Verified 07/14/17 00:13 Skin - Meds/Allergy Pre-op Review Medications Reviewed: Yes Allergies Reviewed: Yes Anesthesia Results - Labs Laboratory Last Values WBC 10.6 K/mcL (4.3-11.1) 10/22/17 05:41 RBC 3.76 M/mcL (3.82-4.97) L 10/22/17 05:41 Hgb 11.2 g/dL (11.5-15.4) L 10/22/17 05:41 Hct 34.5 % (35.3-44.9) L 10/22/17 05:41 MCV 91.8 fL (83.0-100.0) 10/22/17 05:41 MCH 29.8 pg (28.0-33.3) 10/22/17 05:41 MCHC 32.5 g/dL (31.6-35.5) 10/22/17 05:41 RDW 16.5 % (11.5-14.5) H 10/22/17 05:41 Plt Count 282 K/mcL (140-400) 10/22/17 05:41 MPV 10.7 fL (9.4-12.4) 10/22/17 05:41 Immature Gran % 0.7 % (0-4) 10/22/17 05:41 Seg Neutrophils % 69.2 % 10/22/17 05:41 Lymphocytes % 17.4 % 10/22/17 05:41 Monocytes % 7.6 % 10/22/17 05:41 Eosinophils % 4.5 % 10/22/17 05:41 Basophils % 0.6 % 10/22/17 05:41 Neutrophils # 7.4 K/mcL (1.6-8.9) 10/22/17 05:41 Lymphocytes # 1.9 K/mcL (0.6-4.6) 10/22/17 05:41 Monocytes # 0.8 K/mcL (0.0-1.3) 10/22/17 05:41 Eosinophils # 0.5 K/mcL (0.0-0.6) 10/22/17 05:41 Basophils # 0.1 K/mcL (0.0-0.2) 10/22/17 05:41 Sodium 133 mEq/L (136-145) L 10/22/17 05:41 Potassium 4.8 mEq/L (3.5-5.1) 10/22/17 05:41 Chloride 100 mEq/L (98-107) 10/22/17 05:41 Carbon Dioxide 28 mEq/L (23-29) 10/22/17 05:41 BUN 24 mg/dL (8-23) H 10/22/17 05:41 Creatinine 0.92 mg/dL (0.60-1.20) 10/22/17 05:41 Est GFR ( Amer) > 60 (> 60) 10/22/17 05:41 Est GFR (Non-Af Amer) > 60 (> 60) 10/22/17 05:41 BUN/Creatinine Ratio 26 (6-26) 10/22/17 05:41 Glucose 115 mg/dL (70-105) H 10/22/17 05:41 POC Glucose 155 mg/dL (70-99) H 10/23/17 07:15 Calculated Osmolality 281 (280-300) 10/22/17 05:41 Calcium 8.7 mg/dL (8.6-10.3) 10/22/17 05:41 Iron 75 mcg/dL (50-170) 10/18/17 05:30 % Saturation 21 % (15-50) 10/18/17 05:30 Transferrin 250 mg/dL (203-362) 10/18/17 05:30 Ferritin 32 ng/mL (10-120) 10/18/17 05:30 Total Bilirubin 0.5 mg/dL (0.3-1.0) 10/22/17 05:41 AST 22 Units/L (13-39) 10/22/17 05:41 ALT 13 Units/L (7-52) 10/22/17 05:41 Alkaline Phosphatase 115 Units/L (34-104) H 10/22/17 05:41 Serum Total Protein 5.9 g/dL (6.4-8.9) L 10/22/17 05:41 Albumin 3.0 g/dL (3.5-5.7) L 10/22/17 05:41 Globulin 2.9 g/dL (2.4-3.5) 10/22/17 05:41 Albumin/Globulin Ratio 1.0 (1.1-2.2) L 10/22/17 05:41 Vitamin B12 355 pg/mL (250-1100) 10/18/17 05:30 Folate 8.4 ng/mL (3.0-16.0) 10/18/17 05:30 TSH 2.979 mcIU/mL (0.340-5.600) 10/18/17 05:30 Anesthesia Exam O2 Sat Height 1.7 m Height 1.7 m Weight 83.915 kg Weight 83.915 kg BMI 29 Vital Signs Temp Pulse Resp BP Pulse Ox 98.7 F 60 18 139/65 94 10/30/17 13:55 10/30/17 13:55 10/30/17 13:55 10/30/17 13:55 10/30/17 13:55 NPO (# of Hours): 8 - HEENT Mallampati: II Teeth: Edentulous Denture Type: Upper: Complete, Lower: Complete Oral Opening: Greater than 3 - Cardiac Rhythm: Irregular - Pulmonary Breath Sounds: bilateral Clear Respiratory Effort: Symmetrical Anesthesia Assess/Plan ASA Score: 3 Modified Edi Scale for Level of Consciousness: Cooperative, oriented, and tranquil Anesthetic Plan: General Monitoring Plan: Standard Monitors Recovery Plan: PACU Anes Supervising Prov Stmt: Enflick LIST NOT UPDATED THIS VISIT PATIENT'S CHART AND CURRENT MEDICATIONS REVIEWED Patient informed and consented. Risks, benefits, and alternatives discussed. Patient wishes to proceed.
--- NOTE | 2017-10-30 13:26 | Physician Discharge Referral ---
<Yumi Saravia L - Last Filed: 10/30/17 13:23> ExtendedCare Referral Info Transfer To: [facility] Provider in Charge: Provider in Charge after Transfer: PCP Institutional Level of Care: Skilled - Diagnosis (1) Status post hardware removal Priority: Primary Status: Acute (2) Status post total hip replacement, right Priority: Primary Status: Acute (3) Anxiety Priority: Secondary Status: Chronic (4) Intertrochanteric fracture of right femur Priority: Secondary Status: Chronic (5) Atrial fibrillation Status: Chronic (6) Hypothyroidism Priority: Secondary Status: Chronic (7) Knee pain, right Priority: Secondary Status: Chronic - Transfer Medications Home Medications: Levothyroxine [Synthroid] 100 mcg PO 0630 08/28/16 [History] Omeprazole [PriLOSEC] 20 mg PO BID 08/28/16 [History] Sotalol [Betapace] 80 mg PO Q12H 08/28/16 [History] Baclofen [Lioresal] 10 mg PO TID 07/13/17 [History] Nabumetone 750 mg PO BID 07/13/17 [History] Calcium Carbonate [Tums] 500 mg PO Q8HR PRN #60 tab.chew 10/16/17 [Rx] Oxycodone HCl/Acetaminophen [Percocet 7.5-325 mg Tablet] 1 tab PO DAILY PRN 5 Days #14 tablet 10/16/17 [Rx] Sulfamethoxazole/Trimeth DS [Bactrim Ds] 1 each PO BID #10 tablet 10/16/17 [Rx] Zolpidem [Ambien] 10 mg PO HS 7 Days #7 tablet 10/16/17 [Rx] Allergies/Adverse Reactions: 3 Allergy/AdvReac Type Severity Reaction Status Date / Time latex Allergy Itching Verified 07/14/17 00:13 Penicillins AdvReac Redness of Verified 07/14/17 00:13 Skin - Respiratory Orders None Smoking Cessation: Smoking cessation has been advised. For more information, call the [place] Tobacco Quit Line at 5-265-JYVY-NOW. - Lab Orders Lab Orders: CBC - Ancillary Orders May use pressure relief devices daily prn - Mobility Orders Chair, Ambulate - Rehabiliation Orders Rehab Potential: Good Rehab Orders: ROM Exercises, Evaluation for Physical Therapy, Evaluation for Occupational Therapy Other: Opsite dressing, leave intact until first post-operative visit. If dressing becomes >50% saturated, contact office, remove dressing and place appropriate dressing in its place. Do not allow for dressing to get wet. Zipline/Cj in place, plan to remove at post-operative day #14-16. Total Joint Precautions x 6 weeks Apply cold therapy wrap 3-6x/day for 20 minutes at a time. Encourage ambulation throughout the day Use Incentive spirometer 10x/hour. Elevate affected extremity above heart as tolerated. Brace: Wear hip abductor brace at night x 6 weeks.~ CERTIFICATION: I certify that the transfer of the above named patient to an Extended Care Facility is necessary for the continuing treatment of the diagnosis listed. The above information is true and accurate reflection of patient's current condition. Confidential - Redisclosure prohibited without a patient's written consent. <Nadeem Gu - Last Filed: 10/30/17 14:12> [facility] [place] [facility] Provider in Charge after Transfer: PCP - Respiratory Orders Smoking Cessation: Smoking cessation has been advised. For more information, call the [place] Tobacco Quit Line at 0-420-QBVF-NOW. CERTIFICATION: I certify that the transfer of the above named patient to an Extended Care Facility is necessary for the continuing treatment of the diagnosis listed. The above information is true and accurate reflection of patient's current condition. Confidential - Redisclosure prohibited without a patient's written consent.
--- NOTE | 2017-10-30 14:10 | History & Physical Report ---
Date of Encounter: 10/30/17 Time of Encounter: 14:09 24 Hour HP Update - Instructions Instructions: If the History and Physical is less than 30 days old and was completed prior to A.M. admission and or procedure and has NOT been updated on calendar day of procedure please complete this update prior to performing procedure. - Update Patient reports changes in Medical Condition: No Changes in examination, assessment, or condition: No Changes in Medication: No Preop tests/diagnostics Reviewed: Yes Surgery Remains Indicated: Yes Consent for Planned Operative Procedure(s) Verified: Yes - Pre-Operative Checklist Preoperative Checklist Indicated: No Prophylactic Antibiotic Ordered: Yes Is VTE Prophylaxis Indicated?: Yes
--- NOTE | 2017-10-30 14:33 | Discharge Summary ---
<Nadeem Gu - Last Filed: 10/30/17 14:13> Orders not resulted at time of discharge: Pending orders 10/30/17 14:10 XR hip complete RT [XR] Routine Hemoglobin and Hematocrit [HEME] Routine Date of Encounter: 10/30/17 - Discharge Diagnosis (1) Painful orthopaedic hardware Priority: Primary Status: Acute (2) Status post hardware removal Priority: Primary Status: Acute (3) Status post total hip replacement, right Priority: Primary Status: Acute (4) Anxiety Priority: Secondary Status: Chronic (5) Atrial fibrillation Priority: Secondary Status: Chronic Qualifiers: Atrial fibrillation type: unspecified Qualified Code(s): I48.91 - Unspecified atrial fibrillation (6) Hypothyroidism Priority: Secondary Status: Chronic Qualifiers: Hypothyroidism type: postablative Qualified Code(s): E89.0 - Postprocedural hypothyroidism (7) Intertrochanteric fracture of right femur Priority: Secondary Status: Chronic Qualifiers: Encounter type: sequela Fracture type: closed Fracture alignment: displaced Qualified Code(s): S72.141S - Displaced intertrochanteric fracture of right femur, sequela - Hospital Course Hospital course: Ms. Pressley is a 62 year old female - Time Spent with Patient Total time spent providing and/or coordinating discharge services: - Discharge Medications Home Medications: Levothyroxine [Synthroid] 100 mcg PO 0630 08/28/16 [History] Omeprazole [PriLOSEC] 20 mg PO BID 08/28/16 [History] Sotalol [Betapace] 80 mg PO Q12H 08/28/16 [History] Baclofen [Lioresal] 10 mg PO TID 07/13/17 [History] Nabumetone 750 mg PO BID 07/13/17 [History] Calcium Carbonate [Tums] 500 mg PO Q8HR PRN #60 tab.chew 10/16/17 [Rx] Zolpidem [Ambien] 10 mg PO HS 7 Days #7 tablet 10/16/17 [Rx] Aspirin Enteric Coated [Aspirin EC] 325 mg PO BID #20 tablet.dr 10/30/17 [Rx] OxyCODONE Immed Rel [Roxicodone 5 MG] 5 mg PO Q4HR PRN 4 Days #20 tablet [Rx] Zolpidem [Ambien] 10 mg PO HS 7 Days #7 tablet 11/02/17 [Rx] Allergies/Adverse Reactions: 3 Allergy/AdvReac Type Severity Reaction Status Date / Time latex Allergy Itching Verified 07/14/17 00:13 Penicillins AdvReac Redness of Verified 07/14/17 00:13 Skin Primary care physician: Hamlet Jennings MD - Patient Status Disposition: Transfer SNF Condition: Good - Discharge Instructions Instructions: Total Hip Replacement (DC) Follow Up With: Nadeem Gu MD [Partnered Physician] - 11/25/17 3:50 pm Yumi Saravia PAC [Physician Receivable Executive] - 11/05/17 2:00 pm (Second followup: 11/12/17 @ 10:30am) Additional Instructions: Make PCP followup upon discharge from rehab facility for anxiety and depression follow up. Patient may benefit from consult while at [facility]. <Yumi Saravia - Last Filed: 11/02/17 13:12> Orders not resulted at time of discharge: Pending orders 10/30/17 18:08 Surgical Pathology [PTH] Routine 10/30/17 18:11 Culture,Anaerobic [RM] Routine 10/30/17 19:44 PRBC [Red Blood Cells] [BBK] Stat Type and Screen [BBK] Stat Date of Encounter: 11/02/17 Time of Encounter: 12:57 - Discharge Diagnosis (1) Status post hardware removal Priority: Primary Status: Acute (2) Status post total hip replacement, right Priority: Primary Status: Acute Comments: Opsite dressing, leave intact until first post-operative visit. If dressing becomes >50% saturated, contact office, remove dressing and place appropriate dressing in its place. Do not allow for dressing to get wet. Zipline/Cj in place, plan to remove at post-operative day #14-16. Total Joint Precautions x 6 weeks Apply cold therapy wrap 3-6x/day for 20 minutes at a time. Encourage ambulation throughout the day Use Incentive spirometer 10x/hour. Elevate affected extremity above heart as tolerated. Brace: Wear hip abductor brace at night x 6 weeks. (3) Anxiety Status: Chronic Comments: Will need f/up with PCP/erin sims - outpatient (4) Intertrochanteric fracture of right femur Status: Chronic Qualifiers: Encounter type: sequela Fracture type: closed Fracture alignment: displaced Qualified Code(s): S72.141S - Displaced intertrochanteric fracture of right femur, sequela (5) Atrial fibrillation Status: Chronic Qualifiers: Atrial fibrillation type: unspecified Qualified Code(s): I48.91 - Unspecified atrial fibrillation (6) Hypothyroidism Status: Chronic Qualifiers: Hypothyroidism type: postablative Qualified Code(s): E89.0 - Postprocedural hypothyroidism (7) Knee pain, right Status: Chronic Comments: Starting Voltaren gel TID - 2-3 grams to Right knee TID x 1 month Hinged knee brace started for support and during ambulation. Ok to remove as tolerated per patient. Qualifiers: Chronicity: chronic Qualified Code(s): M25.561 - Pain in right knee; G89.29 - Other chronic pain (8) Painful orthopaedic hardware Priority: Primary Status: Acute (9) Anemia Priority: Secondary Status: Acute Comments: Patient will complete a total of 4 units of blood prior to discharge. Qualifiers: Anemia type: unspecified type Qualified Code(s): D64.9 - Anemia, unspecified - Hospital Course Hospital course: Ms. Pressley is a 62 year old female, s/p Right Total hip replacement with removal of IM nail secondary to painful hardware on 10/30/17 Patient had post-operative anemia secondary to acute blood loss. She will receive a total of 4 units of blood during post-operative course. Patient is asymptomatic at this time and Stable for discharge. Patient seen at bedside, without complaints. A&O x 3 Afebrile, vital signs stable. Vital Signs Temp Pulse Resp BP Pulse Ox 11/02/17 11:45 99.3 F 66 20 94/56 96 11/02/17 11:25 98.1 F 73 20 96/61 94 11/02/17 08:07 99.5 F 92 92 111/71 96 11/02/17 01:46 98.6 F 77 16 104/65 93 11/01/17 22:49 98.4 F 87 18 127/69 100 11/01/17 18:28 97.7 F 79 16 107/68 96 11/01/17 17:40 101/67 11/01/17 16:26 98.2 F 70 16 96/62 96 Intake and Output 11/01/17 11/02/1718 23:59 07:59 15:59 Intake Total 120 / 120 Output Total 230 / 230 Balance -20 / -20 -230 / -230 120 / 120 Intake: Oral 120 / 120 Blood Product 0 / 0 Rbcs Leuko Poor As-1 Unit 0 / 0 [id number] Output: Urine 200 / 200 Wound Drainage 30 / 30 Right Hip 30 30 Other: Meal Breakfast Percent of Meal Consumed 25% # Voids 1 1 Blood Glucose* 180 163 Labs reviewed. H/H - Abnormal Labs 10/30/17 10/30/17 10/30/17 18:17 19:38 19:44 Hgb 9.8 L Hct 30.4 L Sodium Potassium BUN BUN/Creatinine Ratio Glucose POC Glucose 153 H Calcium Crossmatch See Detail 10/31/17 10/31/17 10/31/17 03:44 07:09 13:03 Hgb Hct Sodium 131 L Potassium 5.8 H BUN 34 H BUN/Creatinine Ratio 40 H Glucose 162 H POC Glucose 111 H 111 H Calcium 8.0 L Crossmatch 10/31/17 11/01/17 11/01/17 19:11 00:55 09:14 Hgb Hct Sodium 133 L Potassium BUN 33 H BUN/Creatinine Ratio 35 H Glucose 124 H POC Glucose 158 H 226 H Calcium 8.3 L Crossmatch 11/01/17 11/01/17 11/01/17 11:29 16:24 18:34 Hgb Hct Sodium Potassium BUN BUN/Creatinine Ratio Glucose POC Glucose 208 H 180 H 159 H Calcium Crossmatch 11/01/17 11/02/17 11/02/17 20:27 07:39 08:09 Hgb 11.0 L D 9.4 L D Hct 34.7 L 28.7 L Sodium Potassium BUN BUN/Creatinine Ratio Glucose POC Glucose 130 H Calcium Crossmatch 11/02/17 11/02/17 09:55 11:38 Hgb Hct Sodium 129 L Potassium BUN 27 H BUN/Creatinine Ratio 30 H Glucose 240 H POC Glucose 163 H Calcium 8.4 L Crossmatch Pain control: adequate Participating in PT. All questions and concerns addressed. Educated on use of incentive spirometer. Encouraged ambulation and proper hydration. Patient educated on post-operative restrictions and post-operative care. Assessment and plan: Continue with postoperative care She was depressed yesterday secondary to the anniversary of her sons . Patient reports she is better today. No suicidal or homicidal ideations. She wishes to follow up with psyc and PCP outpatient regarding these concerns. We will help to facilitate this. She also has Right knee arthritis, given knee brace today for support and then starting Voltaren gel daily. Discharge plan: [facility], discharge today - Time Spent with Patient Total time spent providing and/or coordinating discharge services: Date of admission: 10/30/17 19:40 Primary care physician: Hamlet Jennings MD Consults: 10/30/17 20:30 Consult to Nurse Navigator [CONS] Routine Comment: ortho navigator Consult to Occupational Therapy [CONS] Routine Comment: Evaluate, develop and implement POC Reason for Consult: total hip replacement Does patient have active BEDREST order?: No Is patient medically & hemodynamically stable?: Yes Consult to Physical Therapy [CONS] Routine Comment: Evaluate, develop and implement POC Reason for Consult: total hip replacement Does patient have active BEDREST order?: No Is patient medically & hemodynamically stable?: Yes Consult to Animal Behaviorist [CONS] Routine Reason for SW Consult: post op joint replacement RT Post Op Consult [CONS] Routine Discharging clinician: Yumi Saravia Anticipated date of discharge: 11/02/17 Labs on day of discharge: Labs from last 24 hours 11/02/17 11/02/17 11/02/17 09:55 08:09 07:39 Hgb 9.4 L D Hct 28.7 L Sodium 129 L Potassium 5.0 Chloride 98 Carbon Dioxide 29 BUN 27 H Creatinine 0.90 Est GFR ( Amer) > 60 Est GFR (Non-Af Amer) > 60 BUN/Creatinine Ratio 30 H Glucose 240 H POC Glucose 130 H Calculated Osmolality 281 Calcium 8.4 L Blood Type Antibody Screen Crossmatch 11/01/17 11/01/17 11/01/17 20:27 18:34 16:24 Hgb 11.0 L D Hct 34.7 L Sodium Potassium Chloride Carbon Dioxide BUN Creatinine Est GFR ( Amer) Est GFR (Non-Af Amer) BUN/Creatinine Ratio Glucose POC Glucose 159 H 180 H Calculated Osmolality Calcium Blood Type Antibody Screen Crossmatch 11/01/17 10/31/17 10/31/17 11:29 19:11 13:03 Hgb Hct Sodium Potassium Chloride Carbon Dioxide BUN Creatinine Est GFR ( Amer) Est GFR (Non-Af Amer) BUN/Creatinine Ratio Glucose POC Glucose 208 H 158 H 111 H Calculated Osmolality Calcium Blood Type Antibody Screen Crossmatch 10/30/17 19:44 Hgb Hct Sodium Potassium Chloride Carbon Dioxide BUN Creatinine Est GFR ( Amer) Est GFR (Non-Af Amer) BUN/Creatinine Ratio Glucose POC Glucose Calculated Osmolality Calcium Blood Type O POSITIVE Antibody Screen NEGATIVE Crossmatch See Detail - Impressions ITS Impressions Hip X-Ray 10/30/17 14:10 IMPRESSION: Sequelae of right hip arthroplasty without adverse features evident. D/ / 10/30/2017 22:21:30 Chang Oneill MD / edwardo Interpreting Provider: Chang Oneill MD Knee X-Ray 10/30/17 16:11 IMPRESSION: Redemonstration of severe tricompartment degenerative changes of the right knee. D/ / 10/30/2017 22:21:56 Chang Oneill MD / edwardo Interpreting Provider: Chang Oneill MD - Patient Status Functional capacity at discharge: uses cane/walker Overall status at discharge: patient is progressing back to baseline - Diet and Activity Activity: as per physical therapy Diet: advance to your usual diet
[2017-10-30] MEDS ORDERED: Clindamycin 900 MG/50 ML 900 MG/50 ML IV.SOLN IVPB ONE (14:38)
[2017-10-30] MEDS ORDERED: Ringers Solution, Lactated 1,000 ML IVC SCH ×2 (14:45→20:30)
[2017-10-30] MEDS ORDERED: Ethanol\\Acetic Acid\\Na Ace\\Ben 1,000 ML IRRIG.SOLN IR ONE (14:52)
[2017-10-30] MEDS ORDERED: *HR* FentaNYL (PF) 100 MCG/2 ML VIAL ONE (15:24)
[2017-10-30] MEDS ORDERED: *HR* Propofol 200 MG/20 ML VIAL IVP ONE (15:24)
[2017-10-30] MEDS ORDERED: *HR* Midazolam HCl 2 MG/2 ML VIAL ONE (15:24)
[2017-10-30] MEDS ORDERED: Ondansetron 4 MG/2 ML VIAL ONE (15:25)
[2017-10-30] MEDS ORDERED: Dexamethasone 4 MG/ML VIAL ONE (15:25)
[2017-10-30] MEDS ORDERED: Lidocaine -MPF 4% 5 ML AMPUL ONE (15:25)
[2017-10-30] MEDS ORDERED: *HR* Succinylcholine 200 MG/10 ML VIAL IVP ONE (15:25)
[2017-10-30] MEDS ORDERED: Lidocaine -MPF 2% 2 ML VIAL ONE (15:25)
[2017-10-30] MEDS ORDERED: Dexamethasone 4 MG/ML VIAL IVP ONE (15:29)
[2017-10-30] MEDS ORDERED: Ondansetron 4 MG/2 ML VIAL IVP ONE (15:29)
[2017-10-30] MEDS ORDERED: *HR* Labetalol 20 MG/4 ML SYRINGE IVP PRN (15:29)
[2017-10-30] MEDS ORDERED: *HR* Promethazine 25 MG/ML VIAL IVP PRN (15:29)
[2017-10-30] MEDS ORDERED: Acetaminophen IV 1,000 MG/100 ML INFUS..BTL ONE (15:54)
[2017-10-30] MEDS ORDERED: EPHEDrine 50 MG/ML VIAL ONE (16:19)
[2017-10-30] MEDS ORDERED: *HR* Morphine 10 MG/ML VIAL ONE (17:09)
--- NOTE | 2017-10-30 17:59 | Orthopedic Operative Note ---
Date of procedure: 10/30/17 Pre-op diagnosis: Protruding hardware right hip status post right hip intramedullary nail fix Post-op diagnosis: same (Right intertrochanteric hip fracture history of) Procedure: Procedure: Right conversion of previous hip surgery with removal of intramedullary nail helical blade and locking bolt conversion to Total Hip Replacment robotic-assisted Estimated blood loss: 1000 cc Hardware: Metal and polyethylene replacement. PartTec DM Cup: 56 cup Femoral anabaptist modular 21 mm x 155 mm stem 23 mm +10 cone body Head: 0 head with Shelley 1 Arthrex cerclage fiber tape one TAZ drain Procedural Notes: Posterior superior protrusion of a helical blade through the femoral head persistence of intramedullary fracture. Operative procedure: The patient was brought to the operating room and placed on the operating room table. After general anesthesia was administered the patient was placed in the lateral decubitus position with the operative leg up. All pressure points were padded appropriately and the head was stabilized in the neutral position. The operative extremity was prepped and draped in the sterile surgical fashion patient received IV antibiotic prior to skin incision. 3 Steinmann pins were placed in the iliac crest 3 cm proximal to the anterior superior iliac spine this was for the robotic-assisted sensor. This was done through a small 2 cm incision. A standard extended posterior approach was made to the operative hip , the incision was made through the skin and subcutaneous, this incorporated the 2 previous incisions for the intramedullary nail fixation. Hemostasis was obtained with Bovie cautery. Using careful sharp dissection the fascia was identified and incised exposing the external rotators. The fascia was split distally to expose the distal locking bolt and the helical blade. Proximally the femoral nail was identified. The distal locking bolt was removed the proximal locking bolt was backed out to allow removal of the helical blade followed by removal of the femoral neck. The capsule was T'd open and the hip was brought into internal rotation. Patient noted to have a large defect in the posterior superior aspect of the femoral head. The femoral neck cut was made at the appropriate level patient was noted to have persistent of portions of the intratrochanteric fracture. An anterior capsulotomy was performed for the anterior retractor. Soft tissues removed from the acetabulum. The acetabulum checkpoint was placed confirmed. The acetabulum was then mapped with robotic assistance. Based on the preoperative plan the acetabulum was reamed in one step with a 55 reamer. The 56 acetabulum was impacted with robotic assistance and 40 degrees of abduction and 20 degrees of anteversion. The hip was brought back in to internal proximal femur was prepared with the canal finder followed by reaming process up to a size 21 to a length of 155 mm. The femoral stem was impacted in place. The proximal portion was reamed for a 23 mm +10 cone body. Trial reduction revealed leg lengths close to normal and stable with a +0 head. The real cone body was impacted in place in 20 degrees of anteversion. Trial reduction found the hip to be stable with 0 head and Shelley. The trials were removed and the real implants were impacted in place. The hip was reduced, the hip had excellent stability with forward flexion to 90 degrees adduction of 30 degrees and internal rotation of 60 degrees. The hip had no shuck. An antibacterial solution was allowed to sit for 2 minutes. It was irrigated out with 2 L of pulse irrigation. The Steinmann pins were removed. The fascia was closed with #2 PDS suture over a TAZ drain. The deep tissue was irrigated and closed deep with #1 PDS suture superficially with 0 PDS suture and skin was closed with skin viktoriya and zip tie. The patient was placed in a sterile dressing and abduction pillow. The patient was extubated and transferred to the recovery room in stable condition. Anesthesia: GETA Surgeon: Nadeem Gu Was there an nursing home assistant present: No Estimated blood loss (cc): 1,000 Condition: stable Disposition: PACU
[2017-10-30] MEDS ORDERED: *HR* Enoxaparin 30 MG/0.3 ML SYRINGE SQ SCH (18:00)
[2017-10-30] MEDS: *HR* HYDROmorphone (PF) 1 MG/ML SYRINGE IVP PRN ×4 (18:15→18:48)
[2017-10-30 18:32] LABS: Hematocrit 30.4 % (35.3-44.9); Hemoglobin 9.8 g/dL (11.5-15.4)
--- NOTE | 2017-10-30 19:18 | Anesthesia Evaluation Post Op ---
Date of Encounter: 10/30/17 Time of Encounter: 19:18 - Discharge PostOp Status: Transfer Patient to floor (Patient's vital signs have been reviewed. Patient is stable postoperatively and has adequately recovered from anesthesia. Patient is determined to have stable airway patency and respiratory function including respiratory rate and oxygen saturation. Patient has a stable heart rate, blood pressure and adequate hydration. Patients mental status is acceptable. Patients temperature is appropriate. Pain and nausea are adequately controlled.)
[2017-10-30] MEDS ORDERED: Naloxone 0.4 MG/ML INJ IVP PRN (20:30)
[2017-10-30] MEDS ORDERED: Ondansetron 4 MG/2 ML VIAL IVP PRN (20:30)
[2017-10-30] MEDS ORDERED: MOM Conc 10 ML UD.LIQ PO PRN (20:30)
[2017-10-30] MEDS ORDERED: Sennosides 8.6 MG TABLET PO PRN (20:30)
[2017-10-30] MEDS ORDERED: Temazepam 15 MG CAPSULE PO PRN (20:30)
[2017-10-30] MEDS: Baclofen 10 MG TABLET PO SCH (22:05)
[2017-10-30] MEDS: traMADol 50 MG TABLET PO PRN (22:05)
[2017-10-30] MEDS: Clindamycin 900 MG/50 ML 900 MG/50 ML IV.SOLN IVPB SCH (22:07)
[2017-10-30] MEDS: NABUMETONE 750 MG PO SCH (22:07)
[2017-10-30] MEDS: Ascorbic Acid 500 MG TABLET PO SCH (22:09)
[2017-10-30] MEDS ORDERED: 0.9 % Sodium Chloride 250 ML ONE (23:09)
[2017-10-30] MEDS: *HR* OxyCODONE Immed Rel 5 MG TABLET PO PRN (23:24)
[2017-10-31] MEDS: *HR* OxyCODONE/APAP 5/325 TABLET PO PRN ×2 (02:09→20:09)
[2017-10-31 04:07] LABS: Hematocrit 37.7 % (35.3-44.9)
[2017-10-31 04:12] LABS: Hemoglobin 12.1 g/dL (11.5-15.4)
[2017-10-31 04:25] LABS: BUN/Creatinine Ratio 40 (6-26); Blood Urea Nitrogen 34 mg/dL (8-23); Carbon Dioxide 24 mEq/L (23-29); Chloride 101 mEq/L (98-107); Glucose 162 mg/dL (70-105); Osmolality,Calculated 283 (280-300); Potassium 5.8 mEq/L (3.5-5.1); Sodium 131 mEq/L (136-145); eGFR For Non-African Americans > 60 (> 60)
[2017-10-31] MEDS ORDERED: 0.9 % Sodium Chloride 250 ML ONE (05:36)
[2017-10-31] MEDS: Clindamycin 900 MG/50 ML 900 MG/50 ML IV.SOLN IVPB SCH (06:02)
[2017-10-31] MEDS: *HR* Enoxaparin 30 MG/0.3 ML SYRINGE SQ SCH ×2 (06:03→18:17)
[2017-10-31] MEDS: *HR* OxyCODONE Immed Rel 5 MG TABLET PO PRN ×3 (06:06→14:48)
--- NOTE | 2017-10-31 06:53 | Orthopedics Progress Note ---
Date of Encounter: 10/31/17 Time of Encounter: 06:53 - Assessment and Plan (1) Painful orthopaedic hardware Current Visit: Yes Status: Acute (2) Status post hardware removal Current Visit: No Status: Acute (3) Status post total hip replacement, right Current Visit: No Status: Acute (4) Anxiety Current Visit: No Status: Chronic (5) Atrial fibrillation Current Visit: No Status: Chronic Qualifiers: Atrial fibrillation type: unspecified Qualified Code(s): I48.91 - Unspecified atrial fibrillation (6) Hypothyroidism Current Visit: No Status: Chronic Qualifiers: Hypothyroidism type: postablative Qualified Code(s): E89.0 - Postprocedural hypothyroidism (7) Intertrochanteric fracture of right femur Current Visit: No Status: Chronic Qualifiers: Encounter type: sequela Fracture type: closed Fracture alignment: displaced Qualified Code(s): S72.141S - Displaced intertrochanteric fracture of right femur, sequela Subjective Interval history: Patient was seen this morning doing well without complaints. Afebrile vital signs stable. Operative extremity: Neurovascularly intact Dressing clean dry and intact Calves nontender Assessment and plan: Continue with postoperative care Hematocrit 37 Objective Vital signs: Vital Signs Temp Pulse Resp BP Pulse Ox 10/31/17 06:12 98.3 F 54 14 110/76 100 10/31/17 05:57 98.5 F 55 14 95/60 100 10/31/17 04:32 97.6 F 62 15 107/76 95 10/31/17 01:52 97.7 F 63 16 110/66 100 10/30/17 23:45 97.9 F 59 14 108/69 10/30/17 23:30 97.8 F 68 14 123/72 100 10/30/17 22:15 97.8 F 70 14 127/86 100 10/30/17 21:38 97.6 F 66 16 94/42 99 10/30/17 20:40 97.8 F 65 16 99/62 99 10/30/17 20:00 97.6 F 67 16 120/60 98 10/30/17 19:30 98.0 F 70 16 123/79 99 10/30/17 19:12 97.6 F 66 12 131/63 97 10/30/17 19:02 97.6 F 72 18 139/78 96 09/14/18 18:52 74 18 129/95 97 10/30/17 18:42 64 18 125/65 94 10/30/17 18:32 97.6 F 70 18 138/67 98 10/30/17 18:22 70 14 133/64 99 10/30/17 18:12 73 18 136/75 98 10/30/17 18:02 99 F 73 16 142/76 98 10/30/17 13:55 98.7 F 60 18 139/65 94 Intake and Output 10/30/17 10/30/17 10/31/17 15:59 23:59 07:59 Intake Total 0 / 0 350 / 350 Output Total 1335 / 1335 230 / 230 Balance -1335 / -1335 120 / 120 Intake: Blood Product 0 / 0 350 / 350 Rbcs Leuko Poor As-1 Unit 0 / 0 [id number] Rbcs Leuko Poor As-1 Unit 0 / 0 350 / 350 [id number] Output: Estimated Blood Loss 1000 / 1000 Wound Drainage 335 / 335 230 / 230 Right Hip 120 / 120 230 / 230 Other: Stool Size Smear Stool Color Brown # Voids 1 # Bowel Movements 1 Weight 83.915 kg - Labs CBC & BMP: 10/31/17 03:44 10/31/17 03:44 Labs: Abnormal lab results Sodium 131 mEq/L (136-145) L 10/31/17 03:44 Potassium 5.8 mEq/L (3.5-5.1) H 10/31/17 03:44 BUN 34 mg/dL (8-23) H 10/31/17 03:44 BUN/Creatinine Ratio 40 (6-26) H 10/31/17 03:44 Glucose 162 mg/dL (70-105) H 10/31/17 03:44 POC Glucose 153 mg/dL (70-99) H 10/30/17 19:38 Calcium 8.0 mg/dL (8.6-10.3) L 10/31/17 03:44 Consult Discharge Plan - Plan Referrals: Hamlet Jennings MD [Primary Care Provider] -
[2017-10-31] MEDS ORDERED: Clindamycin 900 MG/50 ML 900 MG/50 ML IV.SOLN IVPB SCH (08:00)
[2017-10-31] MEDS: Ascorbic Acid 500 MG TABLET PO SCH ×2 (08:58→16:13)
[2017-10-31] MEDS: Baclofen 10 MG TABLET PO SCH ×3 (08:58→20:09)
[2017-10-31] MEDS: Multivit/Ca/Min/Fe/FA 1 TAB TABLET PO SCH (08:58)
[2017-10-31] MEDS: NABUMETONE 750 MG PO SCH ×2 (09:01→20:09)
[2017-10-31] MEDS: traMADol 50 MG TABLET PO PRN (12:40)
[2017-10-31] MEDS: ALPRAZolam 0.25 MG TABLET PO PRN (14:16)
[2017-10-31] MEDS: Acetaminophen IV 1,000 MG/100 ML INFUS..BTL IVPB PRN (16:14)
[2017-10-31] MEDS: Artificial Tears SOLN 15 ML BOTTLE BOTH EYES PRN (16:16)
[2017-11-01] MEDS: ALPRAZolam 0.25 MG TABLET PO PRN ×2 (01:01→17:40)
[2017-11-01 01:06] LABS: Hematocrit 38.7 % (35.3-44.9); Hemoglobin 12.5 g/dL (11.5-15.4)
[2017-11-01 01:24] LABS: BUN/Creatinine Ratio 35 (6-26); Blood Urea Nitrogen 33 mg/dL (8-23); Calcium 8.3 mg/dL (8.6-10.3); Carbon Dioxide 25 mEq/L (23-29); Chloride 100 mEq/L (98-107); Glucose 124 mg/dL (70-105); Osmolality,Calculated 285 (280-300); Potassium 4.9 mEq/L (3.5-5.1); Sodium 133 mEq/L (136-145); eGFR For Non-African Americans > 60 (> 60)
[2017-11-01] MEDS: *HR* OxyCODONE Immed Rel 5 MG TABLET PO PRN (02:19)
[2017-11-01] MEDS: Acetaminophen IV 1,000 MG/100 ML INFUS..BTL IVPB PRN ×2 (04:09→12:51)
--- NOTE | 2017-11-01 06:03 | Orthopedics Progress Note ---
Date of Encounter: 11/01/17 Time of Encounter: 06:02 - Assessment and Plan (1) Painful orthopaedic hardware Current Visit: Yes Status: Acute (2) Status post hardware removal Current Visit: No Status: Acute (3) Status post total hip replacement, right Current Visit: No Status: Acute (4) Anxiety Current Visit: No Status: Chronic (5) Atrial fibrillation Current Visit: No Status: Chronic Qualifiers: Atrial fibrillation type: unspecified Qualified Code(s): I48.91 - Unspecified atrial fibrillation (6) Hypothyroidism Current Visit: No Status: Chronic Qualifiers: Hypothyroidism type: postablative Qualified Code(s): E89.0 - Postprocedural hypothyroidism (7) Intertrochanteric fracture of right femur Current Visit: No Status: Chronic Qualifiers: Encounter type: sequela Fracture type: closed Fracture alignment: displaced Qualified Code(s): S72.141S - Displaced intertrochanteric fracture of right femur, sequela Subjective Interval history: Patient was seen this morning doing well still with complaints of right knee pain, preop and postop x-rays show knee arthritis. Patient received an injection the office recently no other management at this time until hip is further along. Afebrile vital signs stable. Operative extremity: Neurovascularly intact Dressing clean dry and intact Calves nontender Assessment and plan: Continue with postoperative care Hematocrit 38 Objective Vital signs: Vital Signs Temp Pulse Resp BP Pulse Ox 11/01/17 04:48 100.6 F H 76 16 125/52 95 11/01/17 04:10 100.6 F H 76 16 125/52 95 10/31/17 19:00 98.4 F 85 19 104/67 97 10/31/17 14:46 97.5 F L 58 20 122/77 100 10/31/17 11:42 100 10/31/17 10:21 58 103/52 10/31/17 08:53 97.5 F L 61 18 104/68 100 10/31/17 07:04 97.5 F L 55 16 117/60 100 10/31/17 06:12 98.3 F 54 14 110/76 100 Intake and Output 10/31/17 10/31/17 11/01/17 15:59 23:59 07:59 Intake Total 710 / 710 100 / 100 Output Total 160 / 160 400 / 400 375 / 375 Balance 550 / 550 -300 / -300 -375 / -375 Intake: IV Fluids 50 / 50 100 / 100 Ofirmev 1,000 mg/100 ml 1,000 100 / 100 mg In 100 ml @ 400 mls/hr IVPB Q6HR PRN Rx#:[id number] Cleocin Premix 900 MG/50 ML 900 50 / 50 mg In 50 ml @ 50 mls/hr IVPB Q8HR ERIS Rx#:[id number] Oral 360 / 360 Blood Product 300 / 300 Rbcs Leuko Poor As-1 Unit 300 / 300 [id number] Output: Urine 350 / 350 250 / 250 Wound Drainage 160 / 160 50 / 50 125 / 125 Right Hip 160 / 160 50 / 50 125 / 125 Other: Meal Breakfast Percent of Meal Consumed 20% # Voids 1 Blood Glucose* 158 - Labs CBC & BMP: 11/01/17 00:55 11/01/17 00:55 Labs: Abnormal lab results Sodium 133 mEq/L (136-145) L 11/01/17 00:55 BUN 33 mg/dL (8-23) H 11/01/17 00:55 BUN/Creatinine Ratio 35 (6-26) H 11/01/17 00:55 Glucose 124 mg/dL (70-105) H 11/01/17 00:55 POC Glucose 111 mg/dL (70-99) H 10/31/17 07:09 Calcium 8.3 mg/dL (8.6-10.3) L 11/01/17 00:55 Consult Discharge Plan - Plan Referrals: Hamlet Jennings MD [Primary Care Provider] -
[2017-11-01] MEDS: *HR* Enoxaparin 30 MG/0.3 ML SYRINGE SQ SCH ×2 (06:04→17:41)
[2017-11-01] MEDS: NABUMETONE 750 MG PO SCH ×2 (10:07→21:24)
[2017-11-01] MEDS: Multivit/Ca/Min/Fe/FA 1 TAB TABLET PO SCH (10:07)
[2017-11-01] MEDS: Ascorbic Acid 500 MG TABLET PO SCH ×2 (10:07→17:40)
[2017-11-01] MEDS: Baclofen 10 MG TABLET PO SCH ×3 (10:07→21:23)
[2017-11-01] MEDS: *HR* OxyCODONE/APAP 5/325 TABLET PO PRN (10:11)
[2017-11-01] MEDS ORDERED: D5% in Water 1,000 ML IVC PRN (13:48)
[2017-11-01] MEDS ORDERED: *HR* Dextrose 50 % in Water (Syg) 50 ML SYRINGE IVP PRN (13:48)
[2017-11-01] MEDS ORDERED: Dextrose Gel 15 GM/37.5 ML TUBE PO PRN ×2 (13:48)
[2017-11-01] MEDS: Artificial Tears SOLN 15 ML BOTTLE BOTH EYES PRN (13:53)
[2017-11-01] MEDS ORDERED: 0.9 % Sodium Chloride 500 ML IVC ONE (14:23)
[2017-11-01] MEDS: traMADol 50 MG TABLET PO PRN (16:06)
[2017-11-01] MEDS: Insulin LISPRO 300 UNITS/3 ML VIAL SQ SCH ×2 (17:41→21:24)
[2017-11-01 20:50] LABS: Hematocrit 34.7 % (35.3-44.9)
[2017-11-02] MEDS: *HR* OxyCODONE Immed Rel 5 MG TABLET PO PRN ×2 (01:44→20:08)
[2017-11-02] MEDS ORDERED: Furosemide 20 MG/2 ML VIAL IVP ONE (06:54)
--- NOTE | 2017-11-02 06:58 | Orthopedics Progress Note ---
Date of Encounter: 11/02/17 Time of Encounter: 06:57 - Assessment and Plan (1) Painful orthopaedic hardware Current Visit: Yes Status: Acute (2) Status post hardware removal Current Visit: No Status: Acute (3) Status post total hip replacement, right Current Visit: No Status: Acute (4) Anxiety Current Visit: No Status: Chronic (5) Atrial fibrillation Current Visit: No Status: Chronic Qualifiers: Atrial fibrillation type: unspecified Qualified Code(s): I48.91 - Unspecified atrial fibrillation (6) Hypothyroidism Current Visit: No Status: Chronic Qualifiers: Hypothyroidism type: postablative Qualified Code(s): E89.0 - Postprocedural hypothyroidism (7) Intertrochanteric fracture of right femur Current Visit: No Status: Chronic Qualifiers: Encounter type: sequela Fracture type: closed Fracture alignment: displaced Qualified Code(s): S72.141S - Displaced intertrochanteric fracture of right femur, sequela Subjective Interval history: Patient was seen this morning doing well Afebrile vital signs stable. Operative extremity: Neurovascularly intact Dressing clean dry and intact Calves nontender Assessment and plan: Continue with postoperative care Hematocrit 25 transfuse 2 units plan for discharge today DC TAZ drain Objective Vital signs: Vital Signs Temp Pulse Resp BP Pulse Ox 11/02/17 01:46 98.6 F 77 16 104/65 93 11/01/17 22:49 98.4 F 87 18 127/69 100 11/01/17 18:28 97.7 F 79 16 107/68 96 11/01/17 17:40 101/67 11/01/17 16:26 98.2 F 70 16 96/62 96 11/01/17 11:30 98.4 F 72 16 100/65 97 11/01/17 07:08 97.6 F 82 18 94/64 94 Intake and Output 11/01/17 11/01/17 11/02/17 15:59 23:59 07:59 Intake Total 340 / 340 Output Total 100 / 100 20 / 20 230 / 230 Balance 240 / 240 -20 / -20 -230 / -230 Intake: IV Fluids 100 / 100 Ofirmev 1,000 mg/100 ml 1,000 100 / 100 mg In 100 ml @ 400 mls/hr IVPB Q6HR PRN Rx#:[id number] Oral 240 / 240 Output: Urine 200 / 200 Wound Drainage 100 / 100 20 / 20 30 / 30 Right Hip 100 / 100 20 / 20 30 / 30 Other: Meal Breakfast Percent of Meal Consumed 20% Stool Size Large Stool Consistency soft Stool Color Brown Green # Voids 1 1 Blood Glucose* 208 180 - Labs CBC & BMP: 11/01/17 20:27 11/01/17 00:55 Labs: Abnormal lab results Hgb 11.0 g/dL (11.5-15.4) L D 11/01/17 20:27 Hct 34.7 % (35.3-44.9) L 11/01/17 20:27 Sodium 133 mEq/L (136-145) L 11/01/17 00:55 BUN 33 mg/dL (8-23) H 11/01/17 00:55 BUN/Creatinine Ratio 35 (6-26) H 11/01/17 00:55 Glucose 124 mg/dL (70-105) H 11/01/17 00:55 POC Glucose 159 mg/dL (70-99) H 11/01/17 18:34 Calcium 8.3 mg/dL (8.6-10.3) L 11/01/17 00:55 Consult Discharge Plan - Plan Referrals: Hamlet Jennings MD [Primary Care Provider] -
[2017-11-02] MEDS: *HR* Enoxaparin 30 MG/0.3 ML SYRINGE SQ SCH ×2 (07:03→19:58)
[2017-11-02 07:59] LABS: Hematocrit 28.7 % (35.3-44.9)
[2017-11-02 08:26] LABS: Hemoglobin 9.4 g/dL (11.5-15.4)
[2017-11-02] MEDS: Insulin LISPRO 300 UNITS/3 ML VIAL SQ SCH ×4 (08:54→20:12)
[2017-11-02] MEDS: Ascorbic Acid 500 MG TABLET PO SCH ×2 (08:55→16:50)
[2017-11-02] MEDS: Multivit/Ca/Min/Fe/FA 1 TAB TABLET PO SCH (08:55)
[2017-11-02] MEDS: NABUMETONE 750 MG PO SCH ×2 (08:55→20:09)
[2017-11-02] MEDS: *HR* OxyCODONE/APAP 5/325 TABLET PO PRN (08:55)
[2017-11-02] MEDS: Baclofen 10 MG TABLET PO SCH ×3 (08:55→20:08)
[2017-11-02] MEDS: Artificial Tears SOLN 15 ML BOTTLE BOTH EYES PRN (09:08)
[2017-11-02 10:33] LABS: BUN/Creatinine Ratio 30 (6-26); Blood Urea Nitrogen 27 mg/dL (8-23); Calcium 8.4 mg/dL (8.6-10.3); Carbon Dioxide 29 mEq/L (23-29); Chloride 98 mEq/L (98-107); Glucose 240 mg/dL (70-105); Osmolality,Calculated 281 (280-300); Sodium 129 mEq/L (136-145); eGFR For Non-African Americans > 60 (> 60)
[2017-11-02] MEDS: traMADol 50 MG TABLET PO PRN (14:13)
--- NOTE | 2017-11-02 18:08 | Event Note ---
Date of Encounter: 11/02/17 Time of Encounter: 16:30 POD#3 s/p - Right conversion of previous hip surgery with removal of intramedullary nail helical blade and locking bolt conversion to Total Hip Replacment robotic-assisted 10/30/17 Checked on patient's dressings. She saturated through the dressings. There is oozing from multiple sites through incision of serous drainage. no purulent drainage. No erythema, no s/s infection. The viktoriya are intact with no areas of gapping that would require further viktoriya. 2 of the ziplines are loose. These were removed, area dried and new zipline dressings placed for reinforcement of the incisions. TAZ drain pulled by nurse. Reapplied gauze/abd pressure dressings with metapore tape. Begin dressing changed TID. She is otherwise feeling well. Receiving transfusion now. Plan for DC afterwards if stable to ECF.
[2017-11-02 19:43] VITALS: BP 123/71
[2017-11-02] MEDS: ALPRAZolam 0.25 MG TABLET PO PRN (20:08)
[2017-11-02] MEDS: 0.9 % Sodium Chloride 250 ML IVC SCH ×2 (20:09→20:11)
== END 2017-11-02 22:15 | DRG 466 ==
LOC: SAMDAY 13:40 → 3NENU 19:40
PROVIDERS: ADMIT Orthopaedic Surgery; ATTEND Orthopaedic Surgery

== ENCOUNTER 2019-01-07 09:52 | Inpatient (IN) ==
[~2019-01-07 09:52] MED LIST: *HR* Etomidate 20 MG/10 ML AMPUL IVP ONE; *HR* Rocuronium Bromide 100 MG/10 ML VIAL IVC ONE
[2019-01-07] MEDS ORDERED: 0.9 % Sodium Chloride 1,000 ML IVC ONE (10:18)
[2019-01-07] MEDS ORDERED: Ondansetron 4 MG/2 ML VIAL IVP STA (10:23)
[2019-01-07] MEDS ORDERED: Ondansetron 4 MG/2 ML VIAL ONE (10:24)
[2019-01-07 10:25] LABS: ABG Base Excess -4 mEq/L (-2 to 3); ABG HCO3 25 mEq/L (21-27); ABG Oxygen Saturation 100 % (95-98); ABG PCO2 64 mmHg (35-45); ABG PO2 204 mmHg (85-104); ABG TCO2 27 mEq/L (20-26)
[2019-01-07] MEDS ORDERED: Isovue-370 500 ML BOTTLE IVP ONE (10:30)
[2019-01-07 10:48] LABS: Basophils # 0.1 K/mcL (0.0-0.2); Basophils % 0.6 %; Eosinophils # 0.1 K/mcL (0.0-0.6); Eosinophils % 1.1 %; Hematocrit 44.2 % (35.3-44.9); Hemoglobin 13.3 g/dL (11.5-15.4); Immature Granulocytes % 0.4 % (0-4); Lymphocytes # 2.6 K/mcL (0.6-4.6); Lymphocytes % 21.9 %; Mean Corpuscular HGB Conc 30.1 g/dL (31.6-35.5); Mean Corpuscular Hemoglobin 27.4 pg (28.0-33.3); Mean Corpuscular Volume 90.9 fL (83.0-100.0); Mean Platelet Volume 10.8 fL (9.4-12.4); Monocytes # 0.9 K/mcL (0.0-1.3); Monocytes % 7.6 %; Neutrophils # 8.2 K/mcL (1.6-8.9); Nucleated Red Blood Cells 0.4 /100 WBC (0); Platelet Count 441 K/mcL (140-400); Red Blood Count 4.86 M/mcL (3.82-4.97); Red Cell Distribution Width 16.8 % (11.5-14.5); Segmented Neutrophils % 68.4 %
[2019-01-07] MEDS ORDERED: *HR* LORazepam 2 MG/ML VIAL IVP ONE (10:53)
[2019-01-07 10:55] LABS: INR 2.2; Prothrombin Time 25.3 Seconds (9.4-12.1)
[2019-01-07 10:57] LABS: Activated Partial Thrombo Time 35.1 Seconds (26.0-36.0)
[2019-01-07] MEDS ORDERED: 0.9 % Sodium Chloride 1,000 ML IVC STA (11:12)
[2019-01-07] MEDS ORDERED: Piperacillin/Tazobactam 3.375 GM in 0.9 % Sodium Chloride Mini Bag 100 ML IVPB ONE (11:55)
[2019-01-07 12:04] LABS: Alanine Aminotransferase 24 Units/L (7-52); Albumin 3.9 g/dL (3.5-5.7); Albumin/Globulin Ratio 1.1 (1.1-2.2); Alkaline Phosphatase 163 Units/L (34-104); Aspartate Amino Transferase 34 Units/L (13-39); BUN/Creatinine Ratio 31 (6-26); Bilirubin,Direct 0.6 mg/dL (0.0-0.2); Bilirubin,Indirect 0.5 mg/dL (0.0-1.0); Bilirubin,Total 1.1 mg/dL (0.3-1.0); Blood Urea Nitrogen 52 mg/dL (8-23); Calcium 9.1 mg/dL (8.6-10.3); Carbon Dioxide 22 mEq/L (23-29); Chloride 106 mEq/L (98-107); Ethanol < 10 mg/dL (Less than 10); Globulin 3.5 g/dL (2.4-3.5); Glucose 134 mg/dL (70-105); Magnesium 2.1 mg/dL (1.6-2.6); Osmolality,Calculated 308 (280-300); Phosphorous 4.7 mg/dL (2.7-4.5); Potassium 5.8 mEq/L (3.5-5.1); Sodium 141 mEq/L (136-145); Thyroid Stimulating Hormone 5.031 mcIU/mL (0.340-5.600); Total Protein 7.4 g/dL (6.4-8.9); Troponin I < 0.03 ng/mL (< 0.04); eGFR For African Americans 37 (> 60); eGFR For Non-African Americans 31 (> 60)
[2019-01-07] MEDS ORDERED: Cefepime HCl 2,000 MG in 0.9 % Sodium Chloride Mini Bag 100 ML IVPB ONE (12:17)
[2019-01-07 13:44] LABS: Bilirubin,Urine Moderate (Negative); Blood,Urine Negative (Negative); Clarity,Urine Cloudy (Clear); Color,Urine Dark Yellow (Yellow); Glucose,Urine (UA) Normal (Normal); Ketones,Urine Negative (Negative); Leukocyte Esterase,Urine Negative (Negative); Nitrite,Urine Negative (Negative); Protein,Urine 100 mg/dL (Neg-Trace); Specific Gravity,Urine 1.025 (1.010-1.025)
[2019-01-07 13:45] LABS: Bacteria,Urine None Seen per hpf (None-Few); Hyaline Casts,Urine None Seen per lpf (None-Few); RBC,Urine 0-3 per hpf (0-3); Squamous Epithelial Cell,Urine Many per lpf (None-Few); WBC,Urine 0-3 per hpf (0-3)
[2019-01-07] MEDS ORDERED: Furosemide 40 MG/4 ML VIAL IVP ONE (13:51)
[2019-01-07] MEDS ORDERED: *HR* Norepinephrine 4 MG/4 ML VIAL IVC ONE (14:12)
[2019-01-07] MEDS ORDERED: 0.9 % Sodium Chloride 250 ML ONE (14:12)
[2019-01-07] MEDS ORDERED: *HR* Rocuronium Bromide 50 MG/5 ML VIAL IVP ONE (14:30)
[2019-01-07] MEDS ORDERED: *HR* Etomidate 20 MG/10 ML AMPUL IVP ONE (14:30)
[2019-01-07 14:43] LABS: Calcium 8.6 mg/dL (8.6-10.3); Potassium 6.1 mEq/L (3.5-5.1)
[2019-01-07 15:00] LABS: ABG Base Excess -8 mEq/L (-2 to 3); ABG HCO3 21 mEq/L (21-27); ABG Oxygen Saturation 91 % (95-98); ABG PCO2 58 mmHg (35-45); ABG PH 7.17 pH Units (7.32-7.45); ABG PO2 79 mmHg (85-104); ABG TCO2 23 mEq/L (20-26); Blood Gas Modality AF; Blood Gas VT 450 cc
[2019-01-07] MEDS: Norepinephrine 4 MG in 0.9 % Sodium Chloride 250 ML IVC SCH (15:30)
[2019-01-07] MEDS ORDERED: Calcium Gluconate 1gm/50mL 1 GM/50 ML BAG IVPB ONE ×2 (15:34→16:13)
[2019-01-07] MEDS ORDERED: Insulin Human Regular 10 UNIT in 0.9 % Sodium Chloride 10 ML IV ONE (15:34)
[2019-01-07] MEDS ORDERED: *HR* Dextrose 50 % in Water (Syg) 50 ML SYRINGE IVP ONE (15:35)
[2019-01-07] MEDS: FentaNYL (PF) 1,000 MCG in 0.9 % Sodium Chloride 80 ML IVC SCH ×2 (15:45→23:06)
[2019-01-07] MEDS ORDERED: *HR* Dextrose 50 % in Water (Syg) 50 ML SYRINGE ONE (16:13)
[2019-01-07] MEDS: Sodium Bicarbonate 150 MEQ in 0.45 % Sodium Chloride 1,000 ML IVC SCH (16:18)
[2019-01-07] MEDS ORDERED: Naloxone 0.4 MG/ML INJ IVP PRN (16:53)
[2019-01-07] MEDS ORDERED: Norepinephrine 4 MG in 0.9 % Sodium Chloride 250 ML IVC SCH (17:00)
[2019-01-07] MEDS ORDERED: Vancomycin (wt based) 1,000 MG VIAL IVPB SCH (17:00)
[2019-01-07 17:21] LABS: Basophils % 0.4 %; Eosinophils % 0.1 %; Hematocrit 38.8 % (35.3-44.9); Hemoglobin 11.9 g/dL (11.5-15.4); Immature Granulocytes % 0.6 % (0-4); Lymphocytes # 1.2 K/mcL (0.6-4.6); Lymphocytes % 10.2 %; Mean Corpuscular HGB Conc 30.7 g/dL (31.6-35.5); Mean Corpuscular Hemoglobin 27.7 pg (28.0-33.3); Mean Corpuscular Volume 90.2 fL (83.0-100.0); Mean Platelet Volume 10.6 fL (9.4-12.4); Monocytes # 0.8 K/mcL (0.0-1.3); Monocytes % 6.9 %; Neutrophils # 9.3 K/mcL (1.6-8.9); Nucleated Red Blood Cells 0.7 /100 WBC (0); Platelet Count 363 K/mcL (140-400); Red Cell Distribution Width 16.9 % (11.5-14.5); Segmented Neutrophils % 81.8 %; White Blood Count 11.4 K/mcL (4.3-11.1)
[2019-01-07 17:38] LABS: Albumin 3.1 g/dL (3.5-5.7); Albumin/Globulin Ratio 1.1 (1.1-2.2); Calcium 8.4 mg/dL (8.6-10.3); Globulin 2.9 g/dL (2.4-3.5); Potassium 4.5 mEq/L (3.5-5.1)
[2019-01-07] MEDS ORDERED: 0.9 % Sodium Chloride 500 ML IVC ONE (18:35)
[2019-01-07] MEDS ORDERED: *HR* Midazolam HCl 5 MG/5 ML VIAL IVP ONE (19:40)
[2019-01-07 20:23] LABS: ABG Base Excess -5 mEq/L (-2 to 3); ABG HCO3 18 mEq/L (21-27); ABG Oxygen Saturation 97 % (95-98); ABG PCO2 26 mmHg (35-45); ABG PH 7.45 pH Units (7.32-7.45); ABG PO2 83 mmHg (85-104); ABG TCO2 19 mEq/L (20-26); Blood Gas Modality ASSIST CONTROL; Blood Gas VT 450 cc
[2019-01-07] MEDS: Nystatin Cream 15 GM TUBE TP SCH (21:39)
[2019-01-08 03:38] LABS: VBG Ionized Calcium 1.08 mmol/L (1.15-1.35)
[2019-01-08 03:57] LABS: Basophils # 0.1 K/mcL (0.0-0.2); Basophils % 0.7 %; Eosinophils # 0.2 K/mcL (0.0-0.6); Hematocrit 33.5 % (35.3-44.9); Hemoglobin 10.5 g/dL (11.5-15.4); Immature Granulocytes % 0.3 % (0-4); Lymphocytes # 1.4 K/mcL (0.6-4.6); Lymphocytes % 18.2 %; Mean Corpuscular HGB Conc 31.3 g/dL (31.6-35.5); Mean Corpuscular Hemoglobin 27.9 pg (28.0-33.3); Mean Corpuscular Volume 89.1 fL (83.0-100.0); Mean Platelet Volume 10.9 fL (9.4-12.4); Monocytes # 0.6 K/mcL (0.0-1.3); Monocytes % 7.5 %; Neutrophils # 5.4 K/mcL (1.6-8.9); Nucleated Red Blood Cells 0.5 /100 WBC (0); Platelet Count 287 K/mcL (140-400); Red Blood Count 3.76 M/mcL (3.82-4.97); Red Cell Distribution Width 16.7 % (11.5-14.5); Segmented Neutrophils % 71.3 %; White Blood Count 7.5 K/mcL (4.3-11.1)
[2019-01-08] MEDS: Sodium Bicarbonate 150 MEQ in 0.45 % Sodium Chloride 1,000 ML IVC SCH ×2 (03:57→15:24)
[2019-01-08 04:02] LABS: Calcium 7.8 mg/dL (8.6-10.3); Magnesium 1.5 mg/dL (1.6-2.6); Phosphorous 2.8 mg/dL (2.7-4.5); Potassium 3.9 mEq/L (3.5-5.1)
[2019-01-08] MEDS: FentaNYL (PF) 1,000 MCG in 0.9 % Sodium Chloride 80 ML IVC SCH ×4 (04:26→23:41)
[2019-01-08 04:35] LABS: ABG Base Excess -1 mEq/L (-2 to 3); ABG HCO3 24 mEq/L (21-27); ABG Oxygen Saturation 98 % (95-98); ABG PCO2 41 mmHg (35-45); ABG PH 7.37 pH Units (7.32-7.45); ABG PO2 103 mmHg (85-104); ABG TCO2 25 mEq/L (20-26); Blood Gas Modality ASSIST CONTROL; Blood Gas VT 450 cc
[2019-01-08] MEDS: *HR* Heparin 5,000 UNIT/ML VIAL SQ SCH ×2 (05:21→17:08)
[2019-01-08] MEDS ORDERED: *HR* Dextrose 50 % in Water (Syg) 50 ML SYRINGE IVP ONE (05:45)
[2019-01-08] MEDS ORDERED: Perflutren Lipid Microsphere 1.3 ML in 0.9 % Sodium Chloride 8.7 ML IVP ONE (07:46)
[2019-01-08] MEDS ORDERED: Perflutren Lipid Microsphere 2 ML VIAL ONE (07:58)
[2019-01-08] MEDS: Nystatin Cream 15 GM TUBE TP SCH ×2 (08:34→19:32)
[2019-01-08] MEDS ORDERED: Artificial Tears SOLN 15 ML BOTTLE BOTH EYES PRN (10:17)
[2019-01-08 10:25] LABS: INR 2.4; Prothrombin Time 27.5 Seconds (9.4-12.1)
[2019-01-08] MEDS: Artificial Tears SOLN 15 ML BOTTLE BOTH EYES SCH ×4 (11:45→23:55)
[2019-01-08] MEDS: Cefepime HCl 2,000 MG in Water for inj. (sterile) 20 ML IVP SCH (11:45)
[2019-01-08] MEDS: Chlorhexidine Rinse 15 ML MOUTHWASH MM SCH ×2 (11:45→19:32)
[2019-01-08] MEDS: Norepinephrine 4 MG in 0.9 % Sodium Chloride 250 ML IVC SCH (13:16)
[2019-01-08 14:10] LABS: BUN/Creatinine Ratio 36 (6-26); Blood Urea Nitrogen 39 mg/dL (8-23); Carbon Dioxide 22 mEq/L (23-29); Chloride 115 mEq/L (98-107); Glucose 75 mg/dL (70-105); Osmolality,Calculated 308 (280-300); Sodium 145 mEq/L (136-145); eGFR For African Americans > 60 (> 60); eGFR For Non-African Americans 51 (> 60)
[2019-01-08] MEDS ORDERED: Calcium Chloride 1,000 MG in 0.9 % Sodium Chloride 100 ML IVPB ONE (14:52)
[2019-01-08] MEDS ORDERED: Potassium Chloride 40 MEQ, Lidocaine 1% 2 ML in 0.9 % Sodium Chloride 500 ML IVPB ONE (16:58)
[2019-01-08] MEDS ORDERED: *HR* Heparin 5,000 UNIT/ML VIAL IVP ONE (22:50)
[2019-01-08] MEDS ORDERED: *HR* Heparin 5,000 UNIT/ML VIAL IVP PRN ×2 (22:50)
[2019-01-08 23:04] LABS: VBG Ionized Calcium 1.09 mmol/L (1.15-1.35)
[2019-01-08] MEDS ORDERED: Calcium Gluconate 1gm/50mL 1 GM/50 ML BAG IVPB PRN (23:11)
[2019-01-08 23:16] LABS: Magnesium 1.6 mg/dL (1.6-2.6)
[2019-01-08 23:30] LABS: Heparin anti-factor XA UFH 0.28 IU/mL (0.30-0.70)
[2019-01-08 23:31] LABS: INR 1.7; Prothrombin Time 19.6 Seconds (9.4-12.1)
[2019-01-08] MEDS: Heparin 25,000 UNIT/250 ML D5W 25,000 UNIT/250 ML IV.SOLN IVC SCH (23:39)
[2019-01-09] MEDS ORDERED: *HR* Dextrose 50 % in Water (Syg) 50 ML SYRINGE IVP ONE ×2 (00:24→10:33)
[2019-01-09] MEDS: Sodium Bicarbonate 150 MEQ in 0.45 % Sodium Chloride 1,000 ML IVC SCH ×3 (03:25→22:54)
[2019-01-09 03:35] LABS: Basophils % 0.6 %; Eosinophils # 0.2 K/mcL (0.0-0.6); Eosinophils % 3.1 %; Hematocrit 34.4 % (35.3-44.9); Hemoglobin 10.7 g/dL (11.5-15.4); Immature Granulocytes % 0.1 % (0-4); Lymphocytes # 1.5 K/mcL (0.6-4.6); Lymphocytes % 21.3 %; Mean Corpuscular HGB Conc 31.1 g/dL (31.6-35.5); Mean Corpuscular Hemoglobin 27.7 pg (28.0-33.3); Mean Corpuscular Volume 89.1 fL (83.0-100.0); Mean Platelet Volume 10.4 fL (9.4-12.4); Monocytes # 0.6 K/mcL (0.0-1.3); Monocytes % 8.5 %; Neutrophils # 4.6 K/mcL (1.6-8.9); Nucleated Red Blood Cells 0.4 /100 WBC (0); Platelet Count 261 K/mcL (140-400); Red Blood Count 3.86 M/mcL (3.82-4.97); Red Cell Distribution Width 16.9 % (11.5-14.5); Segmented Neutrophils % 66.4 %; White Blood Count 6.9 K/mcL (4.3-11.1)
[2019-01-09 03:47] LABS: VBG Ionized Calcium 1.01 mmol/L (1.15-1.35)
[2019-01-09 03:55] LABS: BUN/Creatinine Ratio 34 (6-26); Blood Urea Nitrogen 37 mg/dL (8-23); Calcium 7.9 mg/dL (8.6-10.3); Carbon Dioxide 28 mEq/L (23-29); Chloride 109 mEq/L (98-107); Glucose 111 mg/dL (70-105); Osmolality,Calculated 311 (280-300); Potassium 3.7 mEq/L (3.5-5.1); Sodium 146 mEq/L (136-145); eGFR For African Americans > 60 (> 60); eGFR For Non-African Americans 50 (> 60)
[2019-01-09] MEDS: FentaNYL (PF) 1,000 MCG in 0.9 % Sodium Chloride 80 ML IVC SCH ×2 (04:31→11:03)
[2019-01-09] MEDS: Artificial Tears SOLN 15 ML BOTTLE BOTH EYES SCH ×6 (04:31→23:01)
[2019-01-09 04:33] LABS: ABG Base Excess 4 mEq/L (-2 to 3); ABG HCO3 27 mEq/L (21-27); ABG Oxygen Saturation 92 % (95-98); ABG PCO2 34 mmHg (35-45); ABG PH 7.51 pH Units (7.32-7.45); ABG PO2 57 mmHg (85-104); ABG TCO2 28 mEq/L (20-26); Blood Gas Modality ASSIST CONTROL; Blood Gas VT 450 cc
[2019-01-09] MEDS: Calcium Gluconate 1gm/50mL 1 GM/50 ML BAG IVPB SCH ×2 (04:56→05:37)
[2019-01-09] MEDS: *HR* Heparin 5,000 UNIT/ML VIAL SQ SCH ×2 (05:03→14:28)
[2019-01-09] MEDS: Chlorhexidine Rinse 15 ML MOUTHWASH MM SCH ×2 (07:20→20:09)
[2019-01-09] MEDS: Nystatin Cream 15 GM TUBE TP SCH ×2 (07:20→20:09)
[2019-01-09] MEDS: Cefepime HCl 2,000 MG in Water for inj. (sterile) 20 ML IVP SCH (11:55)
[2019-01-09] MEDS ORDERED: Aminoglycoside Consult 1 EACH MC ONE (12:50)
[2019-01-09] MEDS: Norepinephrine 4 MG in 0.9 % Sodium Chloride 250 ML IVC SCH (13:05)
[2019-01-09 13:17] LABS: VBG Ionized Calcium 1.12 mmol/L (1.15-1.35)
[2019-01-09 14:39] LABS: Magnesium 1.5 mg/dL (1.6-2.6); Phosphorous 2.1 mg/dL (2.7-4.5)
[2019-01-09 17:55] LABS: VBG Ionized Calcium 1.11 mmol/L (1.15-1.35)
[2019-01-09 18:12] LABS: Magnesium 1.2 mg/dL (1.6-2.6); Phosphorous 1.8 mg/dL (2.7-4.5); Potassium 2.8 mEq/L (3.5-5.1)
[2019-01-09 18:50] LABS: Calcium 6.3 mg/dL (8.6-10.3)
[2019-01-09] MEDS ORDERED: Potassium Chloride 40 MEQ, Lidocaine 1% 2 ML in 0.9 % Sodium Chloride 500 ML IVPB ONE (19:15)
[2019-01-09] MEDS: Heparin 25,000 UNIT/250 ML D5W 25,000 UNIT/250 ML IV.SOLN IVC SCH (20:21)
[2019-01-09] MEDS: MetroNIDAZOLE 500 MG/100 ML 500 MG/100 ML BAG IVPB SCH (23:01)
[2019-01-10] MEDS: *HR* Heparin 5,000 UNIT/ML VIAL SQ SCH (03:39)
[2019-01-10] MEDS: Artificial Tears SOLN 15 ML BOTTLE BOTH EYES SCH ×6 (03:39→23:02)
[2019-01-10 03:45] LABS: VBG Ionized Calcium 1.08 mmol/L (1.15-1.35)
[2019-01-10 03:55] LABS: Basophils % 0.4 %; Eosinophils # 0.2 K/mcL (0.0-0.6); Eosinophils % 2.9 %; Hematocrit 36.6 % (35.3-44.9); Hemoglobin 11.3 g/dL (11.5-15.4); Immature Granulocytes % 0.3 % (0-4); Lymphocytes # 1.6 K/mcL (0.6-4.6); Mean Corpuscular HGB Conc 30.9 g/dL (31.6-35.5); Mean Corpuscular Hemoglobin 27.6 pg (28.0-33.3); Mean Corpuscular Volume 89.5 fL (83.0-100.0); Monocytes # 0.7 K/mcL (0.0-1.3); Monocytes % 9.4 %; Neutrophils # 4.9 K/mcL (1.6-8.9); Platelet Count 278 K/mcL (140-400); Red Blood Count 4.09 M/mcL (3.82-4.97); White Blood Count 7.5 K/mcL (4.3-11.1)
[2019-01-10 04:01] LABS: Magnesium 1.9 mg/dL (1.6-2.6); Phosphorous 2.8 mg/dL (2.7-4.5)
[2019-01-10 04:03] LABS: BUN/Creatinine Ratio 33 (6-26); Blood Urea Nitrogen 31 mg/dL (8-23); Calcium 7.9 mg/dL (8.6-10.3); Carbon Dioxide 29 mEq/L (23-29); Chloride 111 mEq/L (98-107); Glucose 139 mg/dL (70-105); Osmolality,Calculated 309 (280-300); Potassium 4.2 mEq/L (3.5-5.1); Sodium 145 mEq/L (136-145); eGFR For African Americans > 60 (> 60); eGFR For Non-African Americans > 60 (> 60)
[2019-01-10 04:27] LABS: ABG Base Excess 5 mEq/L (-2 to 3); ABG HCO3 28 mEq/L (21-27); ABG Oxygen Saturation 95 % (95-98); ABG PCO2 35 mmHg (35-45); ABG PH 7.52 pH Units (7.32-7.45); ABG PO2 67 mmHg (85-104); ABG TCO2 29 mEq/L (20-26); Blood Gas Modality AF; Blood Gas VT 450 cc
[2019-01-10 07:47] LABS: Amylase 22 Units/L (29-103); Lipase 78 Units/L (11-82)
[2019-01-10] MEDS: MetroNIDAZOLE 500 MG/100 ML 500 MG/100 ML BAG IVPB SCH (08:24)
[2019-01-10] MEDS: Chlorhexidine Rinse 15 ML MOUTHWASH MM SCH ×2 (08:24→19:29)
[2019-01-10] MEDS: Nystatin Cream 15 GM TUBE TP SCH ×2 (08:24→19:29)
[2019-01-10 09:14] LABS: ABG Base Excess 5 mEq/L (-2 to 3); ABG HCO3 31 mEq/L (21-27); ABG Oxygen Saturation 97 % (95-98); ABG PCO2 47 mmHg (35-45); ABG PH 7.43 pH Units (7.32-7.45); ABG PO2 92 mmHg (85-104); ABG TCO2 32 mEq/L (20-26); Blood Gas Modality AF; Blood Gas VT 450 cc
[2019-01-10] MEDS: Cefepime HCl 2,000 MG in Water for inj. (sterile) 20 ML IVP SCH (13:10)
[2019-01-10] MEDS: Dexmedetomidine HCl 400 MCG/100 ML MLS IVC SCH (13:15)
[2019-01-10] MEDS: Heparin 25,000 UNIT/250 ML D5W 25,000 UNIT/250 ML IV.SOLN IVC SCH (13:35)
[2019-01-10] MEDS: Norepinephrine 4 MG in 0.9 % Sodium Chloride 250 ML IVC SCH ×2 (13:36→14:51)
[2019-01-10] MEDS ORDERED: Amiodarone Premix 360 MG/200 ML BAG IVC ONE (14:06)
[2019-01-10] MEDS ORDERED: 0.9 % Sodium Chloride 1,000 ML ONE (14:39)
[2019-01-10] MEDS ORDERED: 0.9 % Sodium Chloride 1,000 ML IVC ONE (14:50)
[2019-01-10] MEDS ORDERED: D5% in Water 1,000 ML IVC PRN (18:05)
[2019-01-10] MEDS ORDERED: *HR* Dextrose 50 % in Water (Syg) 50 ML SYRINGE IVP PRN (18:05)
[2019-01-10] MEDS ORDERED: Dextrose Gel 15 GM/37.5 ML TUBE PO PRN ×2 (18:05)
[2019-01-10] MEDS: Insulin LISPRO 300 UNITS/3 ML VIAL SQ SCH ×2 (19:31→23:39)
[2019-01-10] MEDS: Amiodarone Premix 360 MG/200 ML BAG IVC SCH (21:26)
[2019-01-11] MEDS: Dexmedetomidine HCl 400 MCG/100 ML MLS IVC SCH ×2 (01:13→10:39)
[2019-01-11] MEDS: Insulin LISPRO 300 UNITS/3 ML VIAL SQ SCH ×5 (03:46→20:06)
[2019-01-11] MEDS: Artificial Tears SOLN 15 ML BOTTLE BOTH EYES SCH ×5 (03:46→19:49)
[2019-01-11] MEDS: Heparin 25,000 UNIT/250 ML D5W 25,000 UNIT/250 ML IV.SOLN IVC SCH (03:47)
[2019-01-11 04:54] LABS: BUN/Creatinine Ratio 34 (6-26); Blood Urea Nitrogen 33 mg/dL (8-23); Calcium 7.9 mg/dL (8.6-10.3); Carbon Dioxide 27 mEq/L (23-29); Chloride 110 mEq/L (98-107); Glucose 179 mg/dL (70-105); Osmolality,Calculated 310 (280-300); Potassium 4.6 mEq/L (3.5-5.1); Sodium 144 mEq/L (136-145); eGFR For African Americans > 60 (> 60); eGFR For Non-African Americans 58 (> 60)
[2019-01-11 04:56] LABS: ABG Base Excess 1 mEq/L (-2 to 3); ABG HCO3 28 mEq/L (21-27); ABG Oxygen Saturation 95 % (95-98); ABG PCO2 50 mmHg (35-45); ABG PH 7.35 pH Units (7.32-7.45); ABG PO2 83 mmHg (85-104); ABG TCO2 29 mEq/L (20-26); Blood Gas Modality AF; Blood Gas VT 450 cc
[2019-01-11] MEDS ORDERED: Furosemide 40 MG in 0.9 % Sodium Chloride 50 ML IV ONE (06:53)
[2019-01-11] MEDS ORDERED: Furosemide 40 MG/4 ML VIAL IVP ONE (06:59)
[2019-01-11] MEDS: Chlorhexidine Rinse 15 ML MOUTHWASH MM SCH ×2 (07:52→19:49)
[2019-01-11] MEDS: Nystatin Cream 15 GM TUBE TP SCH ×2 (07:52→19:50)
[2019-01-11] MEDS: Pantoprazole 40 MG VIAL IVP SCH (07:53)
[2019-01-11] MEDS: Amiodarone Premix 360 MG/200 ML BAG IVC SCH ×2 (09:35→19:52)
[2019-01-11] MEDS: Cefepime HCl 2,000 MG in Water for inj. (sterile) 20 ML IVP SCH (12:22)
[2019-01-11 14:29] LABS: Basophils % 0.4 %; Eosinophils # 0.3 K/mcL (0.0-0.6); Eosinophils % 3.1 %; Hematocrit 36.5 % (35.3-44.9); Hemoglobin 11.2 g/dL (11.5-15.4); Immature Granulocytes % 0.5 % (0-4); Lymphocytes # 1.6 K/mcL (0.6-4.6); Lymphocytes % 17.3 %; Mean Corpuscular HGB Conc 30.7 g/dL (31.6-35.5); Mean Corpuscular Hemoglobin 27.5 pg (28.0-33.3); Mean Corpuscular Volume 89.5 fL (83.0-100.0); Mean Platelet Volume 10.8 fL (9.4-12.4); Monocytes # 0.9 K/mcL (0.0-1.3); Monocytes % 9.1 %; Neutrophils # 6.5 K/mcL (1.6-8.9); Nucleated Red Blood Cells 0.3 /100 WBC (0); Platelet Count 261 K/mcL (140-400); Red Blood Count 4.08 M/mcL (3.82-4.97); Red Cell Distribution Width 17.2 % (11.5-14.5); Segmented Neutrophils % 69.6 %; White Blood Count 9.3 K/mcL (4.3-11.1)
[2019-01-11] MEDS: Norepinephrine 4 MG in 0.9 % Sodium Chloride 250 ML IVC SCH (15:14)
[2019-01-11 18:59] LABS: VBG Ionized Calcium 1.15 mmol/L (1.15-1.35)
[2019-01-12] MEDS: Insulin LISPRO 300 UNITS/3 ML VIAL SQ SCH ×7 (00:13→23:25)
[2019-01-12] MEDS: Artificial Tears SOLN 15 ML BOTTLE BOTH EYES SCH ×3 (00:13→09:56)
[2019-01-12] MEDS: Cefepime HCl 2,000 MG in Water for inj. (sterile) 20 ML IVP SCH ×3 (00:13→23:17)
[2019-01-12 04:01] LABS: ABG Base Excess 3 mEq/L (-2 to 3); ABG HCO3 29 mEq/L (21-27); ABG Oxygen Saturation 89 % (95-98); ABG PCO2 53 mmHg (35-45); ABG PH 7.35 pH Units (7.32-7.45); ABG PO2 61 mmHg (85-104); ABG TCO2 31 mEq/L (20-26)
[2019-01-12 04:02] LABS: Basophils % 0.3 %; Eosinophils # 0.2 K/mcL (0.0-0.6); Eosinophils % 2.6 %; Hematocrit 36.2 % (35.3-44.9); Hemoglobin 10.7 g/dL (11.5-15.4); Immature Granulocytes % 0.3 % (0-4); Lymphocytes % 21.3 %; Mean Corpuscular HGB Conc 29.6 g/dL (31.6-35.5); Mean Corpuscular Hemoglobin 27.6 pg (28.0-33.3); Mean Corpuscular Volume 93.3 fL (83.0-100.0); Mean Platelet Volume 11.2 fL (9.4-12.4); Monocytes # 0.8 K/mcL (0.0-1.3); Monocytes % 8.5 %; Neutrophils # 6.1 K/mcL (1.6-8.9); Nucleated Red Blood Cells 0.3 /100 WBC (0); Platelet Count 210 K/mcL (140-400); Red Blood Count 3.88 M/mcL (3.82-4.97); Red Cell Distribution Width 17.1 % (11.5-14.5); White Blood Count 9.1 K/mcL (4.3-11.1)
[2019-01-12 04:23] LABS: Calcium 8.4 mg/dL (8.6-10.3); Potassium 4.9 mEq/L (3.5-5.1)
[2019-01-12] MEDS: Heparin 25,000 UNIT/250 ML D5W 25,000 UNIT/250 ML IV.SOLN IVC SCH ×2 (04:27→13:26)
[2019-01-12] MEDS: Dexmedetomidine HCl 400 MCG/100 ML MLS IVC SCH (05:37)
[2019-01-12] MEDS: Chlorhexidine Rinse 15 ML MOUTHWASH MM SCH (09:56)
[2019-01-12] MEDS: Pantoprazole 40 MG VIAL IVP SCH (09:57)
[2019-01-12] MEDS: Nystatin Cream 15 GM TUBE TP SCH ×2 (09:57→19:37)
[2019-01-12] MEDS: Amiodarone Premix 360 MG/200 ML BAG IVC SCH ×2 (11:04→21:00)
[2019-01-12] MEDS: Norepinephrine 4 MG in 0.9 % Sodium Chloride 250 ML IVC SCH (15:29)
[2019-01-13] MEDS: Insulin LISPRO 300 UNITS/3 ML VIAL SQ SCH ×5 (03:39→20:58)
[2019-01-13 03:45] LABS: Basophils % 0.3 %; Eosinophils # 0.4 K/mcL (0.0-0.6); Eosinophils % 3.1 %; Hematocrit 36.8 % (35.3-44.9); Hemoglobin 11.1 g/dL (11.5-15.4); Immature Granulocytes % 0.5 % (0-4); Lymphocytes # 1.8 K/mcL (0.6-4.6); Lymphocytes % 13.8 %; Mean Corpuscular HGB Conc 30.2 g/dL (31.6-35.5); Mean Corpuscular Volume 89.5 fL (83.0-100.0); Mean Platelet Volume 11.1 fL (9.4-12.4); Monocytes % 7.9 %; Neutrophils # 9.5 K/mcL (1.6-8.9); Platelet Count 251 K/mcL (140-400); Red Blood Count 4.11 M/mcL (3.82-4.97); Red Cell Distribution Width 16.5 % (11.5-14.5); Segmented Neutrophils % 74.4 %; White Blood Count 12.8 K/mcL (4.3-11.1)
[2019-01-13 04:06] LABS: Calcium 8.5 mg/dL (8.6-10.3); Potassium 4.5 mEq/L (3.5-5.1)
[2019-01-13] MEDS ORDERED: Acetaminophen 325 MG TABLET PO PRN (08:50)
[2019-01-13] MEDS: Pantoprazole 40 MG VIAL IVP SCH (10:36)
[2019-01-13] MEDS ORDERED: *HR* Heparin 5,000 UNIT/ML VIAL IVP PRN ×2 (10:41)
[2019-01-13] MEDS ORDERED: Amiodarone Premix 360 MG/200 ML BAG IVC SCH (10:41)
[2019-01-13] MEDS ORDERED: Naloxone 0.4 MG/ML INJ IVP PRN (10:41)
[2019-01-13] MEDS ORDERED: Dextrose Gel 15 GM/37.5 ML TUBE PO PRN ×2 (10:41)
[2019-01-13] MEDS ORDERED: D5% in Water 1,000 ML IVC PRN (10:41)
[2019-01-13] MEDS ORDERED: *HR* Dextrose 50 % in Water (Syg) 50 ML SYRINGE IVP PRN (10:41)
[2019-01-13] MEDS: Heparin 25,000 UNIT/250 ML D5W 25,000 UNIT/250 ML IV.SOLN IVC SCH (12:43)
[2019-01-13] MEDS: *HR* Amiodarone 200 MG TABLET PO SCH (12:47)
[2019-01-13] MEDS: Acetaminophen 325 MG TABLET PO PRN (20:47)
[2019-01-13] MEDS: Nystatin Cream 15 GM TUBE TP SCH (20:58)
[2019-01-13] MEDS: Sennosides 8.6 MG TABLET PO SCH (21:00)
[2019-01-14] MEDS: *HR* OxyCODONE/APAP 5/325 TABLET PO PRN ×3 (03:18→20:18)
[2019-01-14 04:03] LABS: Alanine Aminotransferase 11 Units/L (7-52); Albumin 2.9 g/dL (3.5-5.7); Albumin/Globulin Ratio 0.9 (1.1-2.2); Alkaline Phosphatase 96 Units/L (34-104); Aspartate Amino Transferase 21 Units/L (13-39); BUN/Creatinine Ratio 29 (6-26); Bilirubin,Total 0.4 mg/dL (0.3-1.0); Blood Urea Nitrogen 30 mg/dL (8-23); Calcium 8.8 mg/dL (8.6-10.3); Carbon Dioxide 26 mEq/L (23-29); Chloride 104 mEq/L (98-107); Globulin 3.1 g/dL (2.4-3.5); Glucose 133 mg/dL (70-105); Magnesium 1.7 mg/dL (1.6-2.6); Osmolality,Calculated 294 (280-300); Potassium 4.4 mEq/L (3.5-5.1); Sodium 138 mEq/L (136-145); eGFR For African Americans > 60 (> 60); eGFR For Non-African Americans 54 (> 60)
[2019-01-14 04:14] LABS: Basophils % 0.4 %; Eosinophils # 0.3 K/mcL (0.0-0.6); Eosinophils % 2.2 %; Hematocrit 35.5 % (35.3-44.9); Hemoglobin 11.2 g/dL (11.5-15.4); Immature Granulocytes % 0.4 % (0-4); Lymphocytes # 1.4 K/mcL (0.6-4.6); Lymphocytes % 12.6 %; Mean Corpuscular HGB Conc 31.5 g/dL (31.6-35.5); Mean Corpuscular Hemoglobin 27.2 pg (28.0-33.3); Mean Corpuscular Volume 86.2 fL (83.0-100.0); Mean Platelet Volume 11.9 fL (9.4-12.4); Monocytes # 0.8 K/mcL (0.0-1.3); Monocytes % 7.3 %; Neutrophils # 8.7 K/mcL (1.6-8.9); Platelet Count 274 K/mcL (140-400); Red Blood Count 4.12 M/mcL (3.82-4.97); Red Cell Distribution Width 16.2 % (11.5-14.5); Segmented Neutrophils % 77.1 %; White Blood Count 11.3 K/mcL (4.3-11.1)
[2019-01-14] MEDS: Insulin LISPRO 300 UNITS/3 ML VIAL SQ SCH ×4 (07:57→20:20)
[2019-01-14] MEDS: Acetaminophen 325 MG TABLET PO PRN ×2 (07:57→16:23)
[2019-01-14] MEDS: *HR* Amiodarone 200 MG TABLET PO SCH (07:57)
[2019-01-14] MEDS: Nystatin Cream 15 GM TUBE TP SCH ×2 (07:58→20:18)
[2019-01-14] MEDS ORDERED: Pantoprazole 40 MG VIAL IVP SCH (09:00)
[2019-01-14] MEDS ORDERED: Nitroglycerin 0.4 MG TAB.SUBL SL PRN (12:28)
[2019-01-14] MEDS ORDERED: Nitroglycerin 0.4 MG TAB.SUBL SL ONE (12:31)
[2019-01-14] MEDS: Sennosides 8.6 MG TABLET PO SCH (20:18)
[2019-01-14] MEDS: Heparin 25,000 UNIT/250 ML D5W 25,000 UNIT/250 ML IV.SOLN IVC SCH (20:33)
[2019-01-15] MEDS: Acetaminophen 325 MG TABLET PO PRN (00:36)
[2019-01-15] MEDS: Insulin LISPRO 300 UNITS/3 ML VIAL SQ SCH ×4 (07:58→20:41)
[2019-01-15] MEDS: Nystatin Cream 15 GM TUBE TP SCH ×2 (07:58→20:42)
[2019-01-15] MEDS: *HR* Amiodarone 200 MG TABLET PO SCH (07:58)
[2019-01-15 09:03] LABS: Basophils # 0.1 K/mcL (0.0-0.2); Basophils % 0.8 %; Eosinophils # 0.4 K/mcL (0.0-0.6); Eosinophils % 3.5 %; Hematocrit 38.1 % (35.3-44.9); Hemoglobin 12.1 g/dL (11.5-15.4); Immature Granulocytes % 0.4 % (0-4); Lymphocytes # 2.3 K/mcL (0.6-4.6); Lymphocytes % 22.1 %; Mean Corpuscular HGB Conc 31.8 g/dL (31.6-35.5); Mean Corpuscular Hemoglobin 27.5 pg (28.0-33.3); Mean Corpuscular Volume 86.6 fL (83.0-100.0); Mean Platelet Volume 11.4 fL (9.4-12.4); Monocytes # 0.9 K/mcL (0.0-1.3); Monocytes % 8.2 %; Neutrophils # 6.9 K/mcL (1.6-8.9); Platelet Count 252 K/mcL (140-400); Red Cell Distribution Width 16.4 % (11.5-14.5); White Blood Count 10.6 K/mcL (4.3-11.1)
[2019-01-15 09:20] LABS: BUN/Creatinine Ratio 29 (6-26); Blood Urea Nitrogen 25 mg/dL (8-23); Calcium 8.9 mg/dL (8.6-10.3); Carbon Dioxide 29 mEq/L (23-29); Chloride 104 mEq/L (98-107); Glucose 111 mg/dL (70-105); Osmolality,Calculated 295 (280-300); Potassium 4.2 mEq/L (3.5-5.1); Sodium 140 mEq/L (136-145); eGFR For African Americans > 60 (> 60); eGFR For Non-African Americans > 60 (> 60)
[2019-01-15] MEDS ORDERED: *HR* Metoprolol 5 MG/5 ML VIAL IVP ONE ×2 (11:11→18:33)
[2019-01-15] MEDS: *HR* Rivaroxaban 10 MG TABLET PO SCH (11:49)
[2019-01-15] MEDS: Sennosides 8.6 MG TABLET PO SCH (20:42)
[2019-01-16] MEDS ORDERED: *HR* LORazepam 1 MG TABLET PO ONE (02:42)
[2019-01-16 04:55] LABS: Basophils # 0.1 K/mcL (0.0-0.2); Basophils % 0.5 %; Eosinophils # 0.3 K/mcL (0.0-0.6); Hematocrit 35.9 % (35.3-44.9); Hemoglobin 11.3 g/dL (11.5-15.4); Immature Granulocytes % 0.5 % (0-4); Lymphocytes % 18.5 %; Mean Corpuscular HGB Conc 31.5 g/dL (31.6-35.5); Mean Corpuscular Volume 85.7 fL (83.0-100.0); Mean Platelet Volume 12.4 fL (9.4-12.4); Monocytes # 0.9 K/mcL (0.0-1.3); Monocytes % 8.6 %; Neutrophils # 7.4 K/mcL (1.6-8.9); Platelet Count 230 K/mcL (140-400); Red Blood Count 4.19 M/mcL (3.82-4.97); Red Cell Distribution Width 16.8 % (11.5-14.5); Segmented Neutrophils % 68.9 %; White Blood Count 10.7 K/mcL (4.3-11.1)
[2019-01-16 05:16] LABS: BUN/Creatinine Ratio 26 (6-26); Blood Urea Nitrogen 23 mg/dL (8-23); Calcium 8.6 mg/dL (8.6-10.3); Carbon Dioxide 28 mEq/L (23-29); Chloride 106 mEq/L (98-107); Glucose 108 mg/dL (70-105); Osmolality,Calculated 298 (280-300); Potassium 4.3 mEq/L (3.5-5.1); Sodium 142 mEq/L (136-145); eGFR For African Americans > 60 (> 60); eGFR For Non-African Americans > 60 (> 60)
[2019-01-16] MEDS: *HR* Amiodarone 200 MG TABLET PO SCH (07:13)
[2019-01-16] MEDS: *HR* Rivaroxaban 10 MG TABLET PO SCH (07:13)
[2019-01-16] MEDS ORDERED: Haloperidol Lactate 5 MG/ML VIAL IM ONE (07:34)
[2019-01-16] MEDS ORDERED: Haloperidol Lactate 5 MG/ML VIAL ONE (07:38)
[2019-01-16] MEDS: Insulin LISPRO 300 UNITS/3 ML VIAL SQ SCH ×4 (09:00→22:18)
[2019-01-16] MEDS: Nystatin Cream 15 GM TUBE TP SCH ×2 (09:00→21:51)
[2019-01-16] MEDS ORDERED: Ergocalciferol (VIT D2) 50,000 UNIT (1.25MG) CAP PO SCH (09:42)
[2019-01-16] MEDS: Metoprolol XL (24 HR) Succ 25 MG TAB.ER.24H PO SCH (09:48)
[2019-01-16] MEDS: Sennosides 8.6 MG TABLET PO SCH (21:51)
[2019-01-17 01:43] LABS: Basophils # 0.1 K/mcL (0.0-0.2); Basophils % 0.6 %; Eosinophils # 0.4 K/mcL (0.0-0.6); Hematocrit 38.2 % (35.3-44.9); Hemoglobin 11.8 g/dL (11.5-15.4); Immature Granulocytes % 0.3 % (0-4); Lymphocytes # 1.8 K/mcL (0.6-4.6); Lymphocytes % 17.6 %; Mean Corpuscular HGB Conc 30.9 g/dL (31.6-35.5); Mean Corpuscular Hemoglobin 26.9 pg (28.0-33.3); Mean Platelet Volume 11.2 fL (9.4-12.4); Monocytes # 0.8 K/mcL (0.0-1.3); Monocytes % 7.6 %; Neutrophils # 7.1 K/mcL (1.6-8.9); Platelet Count 259 K/mcL (140-400); Red Blood Count 4.39 M/mcL (3.82-4.97); Segmented Neutrophils % 69.9 %; White Blood Count 10.2 K/mcL (4.3-11.1)
[2019-01-17 02:06] LABS: BUN/Creatinine Ratio 23 (6-26); Blood Urea Nitrogen 22 mg/dL (8-23); Calcium 8.5 mg/dL (8.6-10.3); Carbon Dioxide 30 mEq/L (23-29); Chloride 106 mEq/L (98-107); Glucose 158 mg/dL (70-105); Osmolality,Calculated 297 (280-300); Potassium 3.9 mEq/L (3.5-5.1); Sodium 140 mEq/L (136-145); eGFR For African Americans > 60 (> 60); eGFR For Non-African Americans 59 (> 60)
[2019-01-17] MEDS: Insulin LISPRO 300 UNITS/3 ML VIAL SQ SCH ×4 (08:37→21:05)
[2019-01-17] MEDS: Metoprolol XL (24 HR) Succ 25 MG TAB.ER.24H PO SCH (08:39)
[2019-01-17] MEDS: *HR* Rivaroxaban 10 MG TABLET PO SCH (08:39)
[2019-01-17] MEDS: Nystatin Cream 15 GM TUBE TP SCH ×2 (08:40→21:09)
[2019-01-17] MEDS: *HR* Amiodarone 200 MG TABLET PO SCH (08:40)
[2019-01-17] MEDS: *HR* OxyCODONE/APAP 5/325 TABLET PO PRN ×2 (08:44→16:12)
[2019-01-17] MEDS ORDERED: Metoprolol XL (24 HR) Succ 50 MG TAB.ER.24H PO SCH (09:00)
[2019-01-17] MEDS ORDERED: Metoprolol XL (24 HR) Succ 25 MG TAB.ER.24H PO ONE (09:15)
[2019-01-17] MEDS ORDERED: *HR* LORazepam 1 MG TABLET PO SCH (21:00)
[2019-01-17] MEDS: Sennosides 8.6 MG TABLET PO SCH (21:08)
[2019-01-18] MEDS ORDERED: *HR* Labetalol 20 MG/4 ML SYRINGE IVP ONE (03:17)
[2019-01-18 05:15] LABS: Basophils # 0.1 K/mcL (0.0-0.2); Basophils % 0.8 %; Eosinophils # 0.5 K/mcL (0.0-0.6); Eosinophils % 4.5 %; Hemoglobin 11.1 g/dL (11.5-15.4); Immature Granulocytes % 0.5 % (0-4); Lymphocytes # 2.3 K/mcL (0.6-4.6); Lymphocytes % 22.3 %; Mean Corpuscular HGB Conc 31.7 g/dL (31.6-35.5); Mean Corpuscular Hemoglobin 27.5 pg (28.0-33.3); Mean Corpuscular Volume 86.6 fL (83.0-100.0); Mean Platelet Volume 10.8 fL (9.4-12.4); Monocytes # 0.8 K/mcL (0.0-1.3); Monocytes % 7.2 %; Neutrophils # 6.8 K/mcL (1.6-8.9); Platelet Count 263 K/mcL (140-400); Red Blood Count 4.04 M/mcL (3.82-4.97); Red Cell Distribution Width 17.1 % (11.5-14.5); Segmented Neutrophils % 64.7 %; White Blood Count 10.4 K/mcL (4.3-11.1)
[2019-01-18 05:35] LABS: BUN/Creatinine Ratio 25 (6-26); Blood Urea Nitrogen 21 mg/dL (8-23); Calcium 8.5 mg/dL (8.6-10.3); Carbon Dioxide 29 mEq/L (23-29); Chloride 106 mEq/L (98-107); Glucose 104 mg/dL (70-105); Osmolality,Calculated 299 (280-300); Potassium 3.9 mEq/L (3.5-5.1); Sodium 143 mEq/L (136-145); eGFR For African Americans > 60 (> 60); eGFR For Non-African Americans > 60 (> 60)
[2019-01-18 07:12] VITALS: BP 136/100
[2019-01-18] MEDS ORDERED: Metoprolol XL (24 HR) Succ 50 MG TAB.ER.24H PO SCH ×2 (09:00)
[2019-01-18] MEDS: Insulin LISPRO 300 UNITS/3 ML VIAL SQ SCH (09:11)
[2019-01-18] MEDS: *HR* Amiodarone 200 MG TABLET PO SCH (09:12)
[2019-01-18] MEDS: *HR* Rivaroxaban 10 MG TABLET PO SCH (09:13)
[2019-01-18] MEDS: Nystatin Cream 15 GM TUBE TP SCH (09:16)
== END 2019-01-18 13:40 | disposition home health service (06) | DRG 871 ==
LOC: EMEROOARM 09:52 → SUATTDRO 18:37 → ICNU 18:37 → 2NNU 01-13 12:38
PROVIDERS: ADMIT Internal Medicine Pulmonary Disease; ATTEND Internal Medicine